=== PATIENT | male | born 1960 | race Two or more races ===

== ENCOUNTER 2020-07-07 15:29 | Outpatient (REF) | payer OTHER, SELFPAY ==
--- NOTE | 2020-07-07 15:35 | XR_ITS ---
EXAMINATION: XR ANKLE, LEFT CLINICAL INFORMATION: Pain of left ankle and joints of foot COMPARISON: None TECHNIQUE: AP, lateral, and mortise views of the left ankle. FINDINGS: Alignment is normal and joint spaces are maintained. No arthritic deformity, fracture, subluxation or ankle joint effusion. No focal soft tissue swelling. There is a prominent plantar calcaneal enthesophyte. Peripheral vascular calcifications are noted. XR/XR ankle LT min 3V IMPRESSION: * No specific source of left ankle pain is identified. No ankle arthritis or fracture. * There is a plantar calcaneal enthesophyte.
--- NOTE | 2020-07-07 15:35 | XR_ITS ---
EXAMINATION: XR HIP, RIGHT CLINICAL INFORMATION: Pain right hip. COMPARISON: None TECHNIQUE: Two views of the right hip. FINDINGS: There is no visible acute fracture, dislocation or bony erosive changes. The joint space is maintained. There are punctate lucencies seen in the right femoral neck and proximal femur, suspicious. The soft tissues are normal. XR/XR hip RT w PEL1V IMPRESSION: No acute fracture or dislocation seen. Small lucencies seen in right femoral neck and proximal femur. Question myeloma. Correlate with clinical exam and follow-up with whole body bone scan.
== END 2020-07-07 15:30 | disposition home or self-care (01) ==
LOC: HO.HMGCX 15:29
PROVIDERS: PCP Nurse Practitioner Family; Visit Provider Hospitalist
DX: M25.572 Pain in left ankle and joints of left foot (principal); M25.551 Pain in right hip
CPT/HCPCS: 73502; 73610

== ENCOUNTER 2020-07-19 15:11 | Outpatient (REF) | payer OTHER, SELFPAY ==
--- NOTE | 2020-07-19 15:15 | US_ITS ---
EXAMINATION: US PELVIS, LIMITED/FOLLOW UP CLINICAL INFORMATION: Visible lump right lower quadrant, best when standing. COMPARISON: None TECHNIQUE: Limited imaging through the right lower quadrant abdominal wall was performed. FINDINGS: There is a right lower quadrant soft tissue mass with peristalsis consistent with hernia where the patient clinically feels a lump. The hernia measures 2.5 x 2.3 cm. US/US pelvic limited IMPRESSION: Right lower quadrant abdominal wall hernia with peristaltic bowel loops within. It is compressible.
== END 2020-07-19 15:12 | disposition home or self-care (01) ==
LOC: HO.HMGCX 15:11
PROVIDERS: PCP Nurse Practitioner Family; Visit Provider Nurse Practitioner Family
DX: R10.2 Pelvic and perineal pain (principal); R10.30 Lower abdominal pain, unspecified
CPT/HCPCS: 76857

== ENCOUNTER → 2020-08-10 15:15 | Outpatient (BNVA) | payer OTHER, SELFPAY | PROVIDERS: PCP Nurse Practitioner Family; Visit Provider Surgery | DX: Z76.89 Persons encountering health services in other specified circumstances (principal) ==

== ENCOUNTER 2020-08-29 07:59 | Day surgery (SDC) | payer OTHER, SELFPAY ==
[2020-08-23 14:28] VITALS: BMI 26.2
--- NOTE | 2020-08-28 10:46 | P.CONAN_ITS ---
Documented by User: Ruth Olivera 08/28/20 10:46 HPI - Anesthesia Eval Consult details Narrative: 59yo M for Hernia Repair Inguinal with Mesh [facility] Past Medical History Medical History Asthma Hx of cardiac murmur Right inguinal hernia Seasonal allergies Surgical History Surgical History H/O colonoscopy History of dental surgery Social History Social History Alcohol intake: current Alcohol intake frequency: holidays/special occasions only Smoking Status: Never smoker Use of substances other than those prescribed or required for medical reasons: No Advance Directives Information Provided: No Recently lost weight without trying: No Meds Allergies Allergy/AdvReac Type Severity Reaction Status Date / Time seasonal Allergy Intermediate Shortness Uncoded 08/23/20 14:32 of Breath Home Medications Medication Instructions Recorded Confirmed Type albuterol sulfate 90 mcg/actuation 2 puff PO Q6H PRN 07/07/20 08/23/20 History aerosol inhaler fluticasone 100 mcg-salmeterol 50 1 inh INHALATION Q6H PRN 07/07/20 08/23/20 History mcg/dose blistr powdr for inhalation metronidazole 1 % topical gel with TOPICAL DAILY 07/07/20 07/07/20 History pump sildenafil 25 mg tablet 0 mg PO 07/07/20 08/10/20 History Exam Exam Date and Time: August 28, 2020 1046 Height,Weight and Vital Signs: Height 6 ft 4 in Weight 97.522 kg Assessment and Plan Assessment Anesthesia Assessment: Chart Reviewed Documented by User: Yuli Acosta 08/29/20 08:25 [facility] Past Medical History Medical History Asthma Hx of cardiac murmur Right inguinal hernia Seasonal allergies Surgical History Surgical History H/O colonoscopy History of dental surgery Social History Social History Alcohol intake: current Alcohol intake frequency: holidays/special occasions only Smoking Status: Never smoker Use of substances other than those prescribed or required for medical reasons: No Advance Directives Information Provided: No Recently lost weight without trying: No Meds Allergies Allergy/AdvReac Type Severity Reaction Status Date / Time seasonal Allergy Intermediate Shortness Uncoded 08/23/20 14:32 of Breath Home Medications Medication Instructions Recorded Confirmed Type albuterol sulfate 90 mcg/actuation 2 puff PO Q6H PRN 07/07/20 08/23/20 History aerosol inhaler fluticasone 100 mcg-salmeterol 50 1 inh INHALATION Q6H PRN 07/07/20 08/23/20 History mcg/dose blistr powdr for inhalation metronidazole 1 % topical gel with TOPICAL DAILY 07/07/20 07/07/20 History pump sildenafil 25 mg tablet 0 mg PO 07/07/20 08/10/20 History Exam Airway Mallampati Class: II TM Dist: >3cm Neck ROM: Full Assessment and Plan Assessment Anesthesia Assessment: Anesthesia Plan Discussed and Chart Reviewed Final Anesthetic Review NPO: Yes ASA Class: II Final Preanesthetic Review: No Changes in Pt Med Stat, Meds/Allgs Chart Reviewed, Consent Obtained/Reviewed and Anes Risks/Benef Reviewed Patient Risk: Low Procedure Risk: Low Assessment/Block/Sedation in SS: Assess/Block/Sedation-SS Anesthetic Plan Anesthetic Plan: GA Disposition: Standard PACU
[2020-08-29] VITALS (7 sets, daily range): BP systolic 118–159; BP diastolic 76–88; PULSE 69–75; RESP 16–17; TEMP 36.2–36.4; O2SAT 98–99
[2020-08-29] MEDS: Lactated Ringers 1,000 ML 100 ML IVCONT (08:25)
--- NOTE | 2020-08-29 08:31 | MHC.SHP ---
Pre-Procedural Eval Section B Chief Complaint: Right Inguinal Hernia Allergies: Allergies Allergy/AdvReac Type Severity Reaction Status Date / Time seasonal Allergy Intermediate Shortness Uncoded 08/23/20 14:32 of Breath Plan I have reviewed the history and physical and performed a pertinent physical examination on my patient. No changes have occurred unless specified.
--- NOTE | 2020-08-29 09:22 | W.PM.OPN ---
Operative Note Operative Note Date of Service: 08/29/20 Narrative: PROCEDURE: REPAIR OF A RIGHT INGUINAL HERNIA WITH MESH PREOP DIAGNOSIS: RIGHT INGUINAL HERNIA POSTOP DIAGNOSIS: RIGHT INGUINAL HERNIA, INDIRECT Surgeon: Luis Underwood MD 1st metal moulder's assistant: MICHELLE Schreiber The patient is a 59-year-old male with the with right inguinal hernia. In view of discomfort, he wanted to proceed with repair. He understood the technique of repair with mesh. He was aware of the risks, benefits, and alternatives. The patient was brought to the operating room and placed supine on the OR table under general anesthesia via laryngeal mask airway. The right groin was prepped and draped in the usual sterile fashion. A surgical time-out was done. The patient received cefazolin 2 g IV preoperatively. I infiltrated the planned line of incision using lidocaine 1%. I made a short incision along an imaginary line from the anterior superior iliac spine to the pubic ramus using blade 15. This was extended through the full-thickness of the skin and subcutaneous fat to expose the external oblique aponeurosis. I bluntly dissected the external oblique aponeurosis to define the external ring. I made an incision on the fibers of external oblique aponeurosis using blade 15 and this was extended inferomedially to connect with the external ring. The inguinal canal was therefore entered. I applied graspers on both edges of the external oblique with hemostats. I bluntly dissected the underside to create a pocket for the mesh. I then bluntly dissected the spermatic cord and its contents to define the vas deferens and its accompanying vessels. By doing so I was able to identify the sac. The sac was gently dissected off of the rest of the cord contents down to the internal ring. This was therefore an indirect hernia. I twisted the sac and applied a clamp across this. I transected the sac using scissors above the clamp. I applied a suture ligature using Dexon 2 0 at the stump. I reinforced the internal ring with a small-sized plug. This plug was secured with Prolene 2-0 sutures to the shelving edge of the inguinal ligament laterally, and the internal oblique superiorly and medially. This was done using the inner leaves of the plug. I reinforced the floor of the canal with a keyhole mesh. The tails of the mesh were passed around the cord at the level of the internal ring and were secured together with Prolene 2-0 sutures. I flattened the mesh on the floor of the canal. I secured the mesh with Prolene 2 sutures sutures to the shelving edge of the inguinal ligament laterally and the internal oblique superiorly and medially as well as the pubic ramus inferomedially. We irrigated and suctioned out irrigant fluid. We examined for many stasis. Once hemostasis was verified, I reapposed the external oblique aponeurosis with a running Dexon 2 0 stitch to re-create the external ring. The subcutaneous layer was reapposed with Dexon 3 0 interrupted sutures. Skin closure was achieved with Dexon 4- 0 subcuticular running stitch. Steri-Strips and dressings were applied. The incision was infiltrated with Marcaine 0.5% for postop analgesia. The patient tolerated the procedure well. Initial and final counts of sponges and instruments were correct. Estimated blood loss was about 5 cc. The patient was extubated without difficulty in the operating room and transferred to the recovery room with stable vital signs.
[2020-08-29] MEDS: oxyCODONE HCl Immed Release 5 MG TABLET PO (09:55)
[2020-08-29] MEDS: Acetaminophen 325 MG TABLET 650 MG PO (09:55)
--- NOTE | 2020-08-29 10:22 | HO.POSTANES ---
Post Anesthesia Evaluation Post Anesthesia Evaluation Vital Signs: Vital Signs Temp Pulse Resp BP Pulse Ox 08/29/20 10:15 97.5 F 69 17 130/79 98 08/29/20 10:00 74 17 131/76 99 08/29/20 09:45 71 17 143/85 H 98 08/29/20 09:40 75 17 118/88 99 08/29/20 09:35 73 17 129/79 99 08/29/20 09:30 97.5 F 70 16 122/77 98 08/29/20 08:10 97.1 F 75 16 159/82 H 99 Anesthesia: General Mental Status: Awake Pain Control: Satisfactory Nausea/Vomiting: None Hydration: Adequate Anesthesia-Related Issues: No Anes. Related Issues
== END 2020-08-29 10:50 | disposition home or self-care (01) ==
PROVIDERS: PCP Nurse Practitioner Family; Visit Provider Surgery
PROC: (CPT 49505; principal; 2020-08-29 10:20)
DX: K40.90 Unilateral inguinal hernia, without obstruction or gangrene, not specified as recurrent (principal); Z79.51 Long term (current) use of inhaled steroids; J45.909 Unspecified asthma, uncomplicated; Z79.1 Long term (current) use of non-steroidal anti-inflammatories (NSAID)
CPT/HCPCS: 49505; 88302; C1781; J0690; J1100; J1885; J2250; J2405; J3010

== ENCOUNTER → 2020-09-21 13:36 | Outpatient (BNVA) | payer OTHER, SELFPAY | PROVIDERS: PCP Nurse Practitioner Family; Visit Provider Surgery ==

== ENCOUNTER 2021-01-03 14:00 | Outpatient (REF) | payer OTHER, SELFPAY ==
[2021-01-03 16:52] LABS: MANUAL DIFF FLAG NO
[2021-01-03 17:07] LABS: Basophils Percent Auto 0.4 % (0-2); Eosinophils Absolute Auto 0.1 X10*3/uL (0.0-0.4); Eosinophils Percent Auto 1.2 % (0-4); Hematocrit 37.3 % (42-52); Hemoglobin 12.4 g/dl (14.0-18.0); Imm Gran Abs Auto 0.01 X10*3/uL (0.00-0.03); Imm Gran Pct Auto 0.2 % (0.0-0.4); Lymphocytes Absolute Auto 1.5 X10*3/uL (1.2-4.9); Lymphocytes Percent Auto 28.2 % (20-40); Mean Corpuscular HGB Conc 33.2 g/dl (31.0-36.0); Mean Corpuscular Volume 90.1 fL (80-98); Monocytes Absolute Auto 0.5 X10*3/uL (0.1-1.2); Monocytes Percent Auto 9.9 % (2-11); Neutrophils Absolute Auto 3.1 X10*3/uL (2.0-8.3); Neutrophils Percent Auto 60.1 % (45-73); Platelet Count 249 X10*3/uL (160-400); Red Blood Count 4.14 X10*6/uL (4.60-5.80); Red Cell Distribution Width 12.8 % (11.0-16.0); White Blood Count 5.2 X10*3/uL (4.8-10.8)
[2021-01-03 17:33] LABS: Alanine Aminotransferase 16 U/L (0-40); Albumin Level 4.2 g/dL (3.5-5.0); Alkaline Phosphatase 106 U/L (39-117); Anion Gap 11 (12-20); Aspartate Amino Transferase 23 U/L (5-37); Bilirubin Total 0.6 mg/dL (0.0-1.0); Blood Urea Nitrogen 13 mg/dL (9-16); Calcium 9.4 mg/dL (8.4-10.2); Carbon Dioxide 28 mmol/L (22-29); Chloride 102 mmol/L (96-108); Cholesterol 180 mg/dL; Estimated Glomerular Filt Rate > 60; Glucose Fasting 81 mg/dL (60-99); HDL Cholesterol 79 mg/dL; LDL Cholesterol Calculated 94 mg/dl; Potassium 4.2 mmol/L (3.3-5.1); Sodium 137 mmol/L (135-145); Total Protein 6.6 g/dL (6.5-8.0); Triglycerides 35 mg/dL
[2021-01-03 17:39] LABS: Prostate Specific Antigen Scr 0.87 ng/mL (<0.05-4.0); TSH reflex Free T4 0.65 uIU/mL (0.32-4.0)
== END 2021-01-03 14:01 | disposition home or self-care (01) ==
LOC: HO.HMGCLDS 14:00
PROVIDERS: PCP Nurse Practitioner Family; Visit Provider Nurse Practitioner Family
DX: Z00.00 Encounter for general adult medical examination without abnormal findings (principal); Z12.5 Encounter for screening for malignant neoplasm of prostate
CPT/HCPCS: 36415; 80053; 80061; 84153; 84443; 85025

== ENCOUNTER 2021-01-25 11:15 | Outpatient (REF) | payer OTHER, SELFPAY ==
[2021-01-27 11:49] LABS: FIT Int Ctl YES; FIT1 NEGATIVE (NEGATIVE); FIT2 NEGATIVE (NEGATIVE)
== END 2021-01-25 11:16 | disposition home or self-care (01) ==
LOC: HO.LNP 11:15
PROVIDERS: Visit Provider Nurse Practitioner Family
DX: Z12.11 Encounter for screening for malignant neoplasm of colon (principal)
CPT/HCPCS: 82274

== ENCOUNTER → 2021-03-08 07:25 | Outpatient (REF) | payer OTHER, SELFPAY ==
--- NOTE | 2021-03-08 07:30 | CA_ITS ---
Transthoracic Echocardiogram Patient (Last, First, Middle): Aamir Cummings P Gender: Male Date of : 1960 Age: 60 Procedure Date: 03/08/2021 Procedure Type: Transthoracic Echocardiogram Location: OP Height: 193.04 cm Weight: 95.26 kg BSA: 2.26 m2 Heart Rate: bpm BP: 130 / 90 mmHg Gearcase Assembler: RAUL Robbins MD: Aamir Negron [facility] Logistics Assistant: Gregg Stevenson MD Symptoms: R01.1 - Cardiac murmur, unspecified Study Quality: Good ECG Rhythm: Sinus Conclusions: - Essentially normal study Findings Left Ventricle Normal left ventricular size, thickness, and systolic function. The visually estimated ejection fraction is between 55-60%. Spectral Doppler is indicative of a normal filling pattern. Right Ventricle Normal right ventricular cavity size and systolic function. Atria Both atria are normal in size. Interatrial shunt cannot be excluded. Aortic Valve Normal aortic valve structure and function. There is no aortic valve stenosis. There is no aortic valve regurgitation. Mitral Valve Normal mitral valve structure and function. There is trace mitral valve regurgitation. There is no mitral valve stenosis. Pulmonic Valve The pulmonic valve is likely normal. There is trace pulmonic valve regurgitation. Tricuspid Valve Normal tricuspid valve structure. There is trace tricuspid valve regurgitation. The right ventricular systolic pressure is normal. The right ventricular systolic pressure is 32 mmHg. Normal right atrial pressure. There is no evidence of pulmonary hypertension. Great Vessels All visible segments of the aorta are normal in size. The pulmonary artery was not well visualized. Venous The inferior vena cava is normal in size and collapses greater than 50% with inspiration. Pericardium/Pleural There is no evidence of pericardial effusion. Prior Study Comparison No prior study available for comparison. Measurements 2D Linear Measurements IVSd: 0.85 0.6-0.9/0.6-1.0 cm LVIDd: 5.10 3.9-5.3/4.2-5.9 cm LVIDd Index: 2.26 2.4-3.2/2.2-3.1 cm/m2 LVIDs: 3.67 2.0-3.6 cm LVPWd: 0.92 0.7-1.1 cm Ao Root: 4.20 2.1-3.5 cm LA Diam: 3.80 2.7-3.8/3.0-4.0 cm LAIDs Index: 1.68 1.5-2.3 cm/m2 LV Mass: 198.81 67-162/88-224 g LV Mass Index: 87.97 43-95/49-115 g/m2 LVOT Diam: 2.10 3.0+(-)1.3 cm 2D Systolic Function EF 4C: 54.40 >55% EF 2C: 55.40 >55% Mitral Valve MV Pk E: 0.70 MV PK A: 0.67 MV Decel Time: 292.00 E/A: 1.00 E'Lateral: 12.90 E'Medial: 8.27 E/E' Med: 8.40 E/E' Lat: 5.40 PHT: 85.00 MVA PHT: 2.59 Decel [place]: 2.39 Aortic Valve AoV Pk Lauro: 1.29 AoV Mn Lauro: 0.91 AoV VTI: 0.30 AoV Pk Grad: 7.00 Aov Mn Grad: 4.00 KHUSHI Cont.VTI: 2.86 LVOT LVOT Pk Lauro: 1.21 LVOT Mn Lauro: 0.70 LVOT VTI: 0.25 LVOT Pk Grad: 6.00 LVOT Mn Grad: 2.00 LVOT Diam: 2.10 LVOT Area: 3.46 Diastolic Function MV Pk E: 0.70 MV Pk A: 0.67 E/A: 1.00 E'Medial: 8.27 E/E' Med: 8.40 E' Laterial: 12.90 E/E' Lat: 5.40 Right Ventricle TAPSE (mm): 2.58 Tricuspid Valve TR Pk Lauro: 2.46 TR Pk Grad: 24.00 RA Press: 8.00 RVSP: 32.00 Great Vessels Aorta Ao Root-2D: 4.20 2.0-3.7 cm Ao Asc: 3.70 2.1-3.4 cm Ao Arch: 3.50 Updated in Other Vendor System with Status of Final Gregg Stevenson MD electronically signed on 03/09/2021 12:52:43 PM with status of Final
== END ==
LOC: HO.CARD 07:25
PROVIDERS: PCP Nurse Practitioner Family; Visit Provider Nurse Practitioner Family
DX: R01.1 Cardiac murmur, unspecified (principal)
CPT/HCPCS: 93306

== ENCOUNTER 2021-04-30 15:34 | Outpatient (REF) | payer OTHER, SELFPAY ==
[2021-04-30 16:03] LABS: MANUAL DIFF FLAG NO
[2021-04-30 16:10] LABS: Basophils Percent Auto 0.7 % (0-2); Eosinophils Absolute Auto 0.1 X10*3/uL (0.0-0.4); Eosinophils Percent Auto 1.3 % (0-4); Hematocrit 38.7 % (42-52); Hemoglobin 13.2 g/dl (14.0-18.0); Imm Gran Abs Auto 0.02 X10*3/uL (0.00-0.03); Imm Gran Pct Auto 0.4 % (0.0-0.4); Immature Retic Fraction 6.8 % (2.3-13.4); Lymphocytes Absolute Auto 1.5 X10*3/uL (1.2-4.9); Lymphocytes Percent Auto 26.3 % (20-40); Mean Corpuscular HGB Conc 34.1 g/dl (31.0-36.0); Mean Corpuscular Hemoglobin 30.2 pg (27.0-33.0); Mean Corpuscular Volume 88.6 fL (80-98); Mean Platelet Volume 10.4 fL (9.4-12.4); Monocytes Absolute Auto 0.6 X10*3/uL (0.1-1.2); Monocytes Percent Auto 10.4 % (2-11); Neutrophils Absolute Auto 3.4 X10*3/uL (2.0-8.3); Neutrophils Percent Auto 60.9 % (45-73); Platelet Count 230 X10*3/uL (160-400); Red Blood Count 4.37 X10*6/uL (4.60-5.80); Red Cell Distribution Width 12.6 % (11.0-16.0); Retic HGB Equivalent 33.6 pg (30.0-35.0); Reticulocyte Percent 1.4 % (0.5-1.8); White Blood Count 5.6 X10*3/uL (4.8-10.8)
[2021-04-30 16:30] LABS: Blood Urea Nitrogen 22 mg/dL (9-16); Estimated Glomerular Filt Rate > 60
[2021-04-30 16:49] LABS: Ferritin 295 ng/mL (20-250)
[2021-04-30 17:06] LABS: Folate 8.4 ng/mL (> or = 4.0); Vitamin B12 323 pg/mL (200-900)
[2021-05-03 13:22] LABS: Methylmalonic Acid 171 nmol/L (87-318)
[2021-05-04 08:37] LABS: IgA 278 mg/dL (47-310); IgG 981 mg/dL (600-1640); IgM 94 mg/dL (50-300)
[2021-05-09 10:57] LABS: Prot Elec - Albumin 4.3 g/dL (3.8-4.8); Prot Elec - Alpha1 0.3 g/dL (0.2-0.3); Prot Elec - Alpha2 0.7 g/dL (0.5-0.9); Prot Elec - Beta 1 0.5 g/dL (0.4-0.6); Prot Elec - Beta 2 0.4 g/dL (0.2-0.5); Prot Elec - Gamma 0.9 g/dL (0.8-1.7); Prot Elec - Total Protein 6.9 g/dL (6.1-8.1)
== END 2021-04-30 15:35 | disposition home or self-care (01) ==
LOC: HO.LAB 15:34
PROVIDERS: PCP Nurse Practitioner Family; Referring Provider Nurse Practitioner Family; Visit Provider Psychiatry & Neurology Neurology
DX: G95.20 Unspecified cord compression (principal); D64.9 Anemia, unspecified
CPT/HCPCS: 36415; 82565; 82607; 82728; 82746; 82784; 83921; 84165; 84520; 85025; 85045; 86334

== ENCOUNTER 2021-05-09 17:58 | Outpatient (REF) | payer OTHER, SELFPAY ==
--- NOTE | ~2021-05-09 | MR_ITS ---
EXAMINATION: MR CERVICAL SPINE WITHOUT AND WITH CONTRAST CLINICAL INFORMATION: Cervical cord compression. Myelopathy. COMPARISON: None available. TECHNIQUE: MRI of the cervical spine was obtained using routine sequences without and following the administration of 10 mL of Gadavist intravenous contrast. FINDINGS: Normal anatomic alignment. Advanced degenerative disc disease at C5-C6. Moderate degenerative disc disease at C2-C3 and C3-C4. Associated mixed Modic type discogenic endplate changes including minimal Modic type I discogenic edema at C5-C6. No additional suspicious marrow edema. The vertebral body heights are largely maintained. Patchy regions of T2 hyperintensity within the right ventral cord at the levels of C2 and C3 and left lateral cord at the level of C4. Potential faint T2 hyperintensity within the dorsal cord at the level of C5-C6. No demonstrated abnormal contrast enhancement. Limited evaluation of the soft tissues of the neck without demonstrated abnormalities. The flow voids of the major cervical vessels are maintained. Normal appearance of the cervicomedullary junction and visualized posterior fossa. SPINAL LEVELS: C2-C3: Normal annular contour. There is mild left and no right uncovertebral joint arthropathy. There is no facet joint arthropathy. There is no neural foraminal stenosis. There is no spinal canal stenosis. C3-C4: Mild disc-osteophyte complex. There is mild bilateral uncovertebral joint arthropathy. There is mild left and no right facet joint arthropathy. There is mild bilateral neural foraminal stenosis. There is no spinal canal stenosis. C4-C5: Mild disc-osteophyte complex with superimposed small central disc protrusion. There is mild right and no left uncovertebral joint arthropathy. There is mild bilateral facet joint arthropathy. There is mild right and no left neural foraminal stenosis. There is no spinal canal stenosis. C5-C6: Mild disc-osteophyte complex. There is moderate right and mild left uncovertebral joint arthropathy. There is mild bilateral facet joint arthropathy. There is moderate right and no left neural foraminal stenosis. There is no spinal canal stenosis. C6-C7: Mild disc-osteophyte complex. There is mild right and no left uncovertebral joint arthropathy. There is mild bilateral facet joint arthropathy. There is mild right and no left neural foraminal stenosis. There is no spinal canal stenosis. C7-T1: Normal annular contour. There is no uncovertebral joint arthropathy. There is no facet joint arthropathy. There is no neural foraminal stenosis. There is no spinal canal stenosis. MR/MR cervical spine wo/w con IMPRESSION: 1. Nonspecific patchy T2 hyperintensities within the cervical spinal cord. No associated enhancement to suggest acute insults. No evidence of cord compression. These changes are nonspecific but may represent chronic sequela of inflammatory/demyelinating process. 2. 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 Most notably, there is moderate right-sided neural foraminal stenosis at C5-C6. No spinal canal stenosis.
== END 2021-05-09 17:59 | disposition home or self-care (01) ==
LOC: HO.MRI 17:58
PROVIDERS: Visit Provider Psychiatry & Neurology Neurology
DX: G95.20 Unspecified cord compression (principal)
CPT/HCPCS: 72156; A9585

== ENCOUNTER 2021-05-23 19:37 | Outpatient (REF) | payer OTHER, SELFPAY ==
--- NOTE | ~2021-05-23 | MR_ITS ---
EXAMINATION: MR BRAIN WITHOUT CONTRAST CLINICAL INFORMATION: Cord compression with myelopathy. Evaluation for demyelinating disease. COMPARISON: Cervical spine MRI from 05/09/2021. TECHNIQUE: MRI of the brain was obtained using routine sequences without contrast. FINDINGS: No focal restricted diffusion is demonstrated to suggest acute or subacute cerebral ischemia. No evidence of acute or chronic hemorrhagic products on heme-sensitive imaging. Mild nonspecific scattered subcortical, deep white matter, periventricular, and callosal T2 FLAIR hyperintensities. Proportional prominence of the ventricles and sulcal spaces without evidence of obstructive hydrocephalus. No abnormal mass effect. No midline shift. Normal appearance of the pituitary gland. Normal positioning of the cerebellar tonsils. Normal arterial and venous vascular flow voids are present. Normal, homogeneous marrow signal. Mild mucosal thickening of the paranasal sinuses. No signal abnormalities within the mastoids. MR/MR head/brain wo con IMPRESSION: 1. No acute intracranial abnormalities. 2. Mild supratentorial white matter changes. The distribution of these changes is nonspecific but can be seen in the setting of demyelinating processes in the appropriate clinical setting.
== END 2021-05-23 19:38 | disposition home or self-care (01) ==
LOC: HO.MRI 19:37
PROVIDERS: Visit Provider Psychiatry & Neurology Neurology
DX: G95.20 Unspecified cord compression (principal); G37.9 Demyelinating disease of central nervous system, unspecified
CPT/HCPCS: 70551

== ENCOUNTER 2021-07-23 09:44 | Outpatient (REF) | payer OTHER, SELFPAY | END 2021-07-23 09:45 | disposition home or self-care (01) | LOC: HO.MDS 09:44 | PROVIDERS: PCP Nurse Practitioner Family; Visit Provider Psychiatry & Neurology Neurology | DX: G37.9 Demyelinating disease of central nervous system, unspecified (principal) | CPT/HCPCS: 96365; J2930 ==

== ENCOUNTER 2021-07-24 10:42 | Outpatient (REF) | payer OTHER, SELFPAY | END 2021-07-24 10:43 | disposition home or self-care (01) | LOC: HO.MDS 10:42 | PROVIDERS: PCP Nurse Practitioner Family; Visit Provider Psychiatry & Neurology Neurology | DX: G37.9 Demyelinating disease of central nervous system, unspecified (principal) | CPT/HCPCS: 96365; J2930 ==

== ENCOUNTER 2021-07-25 12:00 | Outpatient (REF) | payer OTHER, SELFPAY | END 2021-07-25 12:01 | disposition home or self-care (01) | LOC: HO.MDS 12:00 | PROVIDERS: PCP Nurse Practitioner Family; Visit Provider Psychiatry & Neurology Neurology | DX: G37.9 Demyelinating disease of central nervous system, unspecified (principal) | CPT/HCPCS: 96365; J2930 ==

== ENCOUNTER 2021-07-26 09:53 | Outpatient (REF) | payer OTHER, SELFPAY | END 2021-07-26 09:54 | disposition home or self-care (01) | LOC: HO.MDS 09:53 | PROVIDERS: PCP Nurse Practitioner Family; Visit Provider Psychiatry & Neurology Neurology | DX: G37.9 Demyelinating disease of central nervous system, unspecified (principal) | CPT/HCPCS: 96365; J2930 ==

== ENCOUNTER 2021-07-27 09:26 | Outpatient (REF) | payer OTHER, SELFPAY | END 2021-07-27 09:31 | LOC: HO.MDS 09:26 | PROVIDERS: PCP Nurse Practitioner Family; Visit Provider Psychiatry & Neurology Neurology | DX: G35 Multiple sclerosis (principal) | CPT/HCPCS: 96365 ==

== ENCOUNTER 2021-09-25 13:51 | Outpatient (REF) | payer OTHER, SELFPAY | END 2021-09-25 13:52 | disposition home or self-care (01) | LOC: HO.MDS 13:51 | PROVIDERS: Visit Provider Psychiatry & Neurology Neurology | DX: G35 Multiple sclerosis (principal) | CPT/HCPCS: 96365; J2930 ==

== ENCOUNTER 2021-09-26 09:57 | Outpatient (REF) | payer OTHER, SELFPAY | END 2021-09-26 09:58 | disposition home or self-care (01) | LOC: HO.MDS 09:57 | PROVIDERS: Visit Provider Psychiatry & Neurology Neurology | DX: G35 Multiple sclerosis (principal) | CPT/HCPCS: 96365; J2930 ==

== ENCOUNTER 2021-09-27 13:51 | Outpatient (REF) | payer OTHER, SELFPAY | END 2021-09-27 13:52 | disposition home or self-care (01) | LOC: HO.MDS 13:51 | PROVIDERS: Visit Provider Psychiatry & Neurology Neurology | DX: G35 Multiple sclerosis (principal) | CPT/HCPCS: 96365; J2930 ==

== ENCOUNTER 2021-10-24 11:23 | Outpatient (REF) | payer OTHER, SELFPAY ==
[2021-10-24 11:47] LABS: MANUAL DIFF FLAG NO
[2021-10-24 12:12] LABS: Basophils Percent Auto 0.4 % (0-2); Eosinophils Percent Auto 0.5 % (0-4); Hematocrit 41.8 % (42.0-52.0); Hemoglobin 13.6 g/dl (14.0-18.0); Imm Gran Abs Auto 0.03 X10*3/uL (0.00-0.03); Imm Gran Pct Auto 0.5 % (0.0-0.4); Lymphocytes Absolute Auto 1.3 X10*3/uL (1.2-4.9); Lymphocytes Percent Auto 22.8 % (20-40); Mean Corpuscular HGB Conc 32.5 g/dl (31.0-36.0); Mean Corpuscular Hemoglobin 30.2 pg (27.0-33.0); Mean Corpuscular Volume 92.7 fL (80.0-98.0); Mean Platelet Volume 10.7 fL (9.4-12.4); Monocytes Absolute Auto 0.6 X10*3/uL (0.1-1.2); Monocytes Percent Auto 11.1 % (2-11); Neutrophils Absolute Auto 3.7 x10*3/uL (2.0-8.3); Neutrophils Percent Auto 64.7 % (45-73); Platelet Count 261 X10*3/uL (160-400); Red Blood Count 4.51 X10*6/uL (4.60-5.80); Red Cell Distribution Width 12.7 % (11.0-16.0); White Blood Count 5.7 X10*3/uL (4.8-10.8)
[2021-10-24 12:49] LABS: Erythrocyte Sedimentation Rate 9 MM/HR (0-15)
[2021-10-25 09:02] LABS: Lyme Abs Screen <0.90 index
[2021-10-26 13:46] LABS: Anti Nuclear Antibody Screen NEGATIVE (NEGATIVE)
== END 2021-10-24 11:24 | disposition home or self-care (01) ==
LOC: HO.LAB 11:23
PROVIDERS: PCP Nurse Practitioner Family; Visit Provider Psychiatry & Neurology Neurology
DX: G35 Multiple sclerosis (principal)
CPT/HCPCS: 36415; 85025; 85652; 86038; 86039; 86617; 86618

== ENCOUNTER 2021-10-24 12:01 | Outpatient (REF) | payer OTHER, SELFPAY | END 2021-10-24 12:02 | disposition home or self-care (01) | LOC: HO.MDS 12:01 | PROVIDERS: Visit Provider Psychiatry & Neurology Neurology | DX: G35 Multiple sclerosis (principal) | CPT/HCPCS: 96365; J2930 ==

== ENCOUNTER 2021-11-21 13:07 | Outpatient (REF) | payer OTHER, SELFPAY | END 2021-11-21 13:08 | disposition home or self-care (01) | LOC: HO.MDS 13:07 | PROVIDERS: Visit Provider Psychiatry & Neurology Neurology | DX: G35 Multiple sclerosis (principal) | CPT/HCPCS: 96365; J2930 ==

== ENCOUNTER 2021-12-12 13:25 | Outpatient (REF) | payer OTHER, SELFPAY | END 2021-12-12 13:26 | disposition home or self-care (01) | LOC: HO.MDS 13:25 | PROVIDERS: Visit Provider Psychiatry & Neurology Neurology | DX: G35 Multiple sclerosis (principal) | CPT/HCPCS: 96365; J2930 ==

== ENCOUNTER 2022-01-02 13:27 | Outpatient (REF) | payer OTHER, SELFPAY | END 2022-01-02 13:28 | disposition home or self-care (01) | LOC: HO.MDS 13:27 | PROVIDERS: Visit Provider Psychiatry & Neurology Neurology | DX: G35 Multiple sclerosis (principal) | CPT/HCPCS: 96365; J2930 ==

== ENCOUNTER 2022-01-23 13:38 | Outpatient (REF) | payer OTHER, SELFPAY | END 2022-01-23 13:39 | disposition home or self-care (01) | LOC: HO.MDS 13:38 | PROVIDERS: Visit Provider Psychiatry & Neurology Neurology | DX: G35 Multiple sclerosis (principal) | CPT/HCPCS: 96365; J2930 ==

== ENCOUNTER 2022-02-14 13:34 | Outpatient (REF) | payer OTHER, SELFPAY | END 2022-02-14 13:35 | disposition home or self-care (01) | LOC: HO.MDS 13:34 | PROVIDERS: Visit Provider Psychiatry & Neurology Neurology | DX: G35 Multiple sclerosis (principal) | CPT/HCPCS: 96365; J2930 ==

== ENCOUNTER 2022-03-06 13:29 | Outpatient (REF) | payer OTHER, SELFPAY | END 2022-03-06 13:30 | disposition home or self-care (01) | LOC: HO.MDS 13:29 | PROVIDERS: Visit Provider Psychiatry & Neurology Neurology | DX: G35 Multiple sclerosis (principal) | CPT/HCPCS: 96365; J2930 ==

== ENCOUNTER 2022-03-27 13:32 | Outpatient (REF) | payer OTHER, SELFPAY | END 2022-03-27 13:33 | disposition home or self-care (01) | LOC: HO.MDS 13:32 | PROVIDERS: Visit Provider Psychiatry & Neurology Neurology | DX: G35 Multiple sclerosis (principal) | CPT/HCPCS: 96365; J2930 ==

== ENCOUNTER 2022-04-11 13:29 | Outpatient (REF) | payer OTHER, SELFPAY | END 2022-04-11 13:30 | disposition home or self-care (01) | LOC: HO.MDS 13:29 | PROVIDERS: Visit Provider Psychiatry & Neurology Neurology | DX: G35 Multiple sclerosis (principal) | CPT/HCPCS: 96365; J2930 ==

== ENCOUNTER 2022-05-01 13:29 | Outpatient (REF) | payer OTHER, SELFPAY | END 2022-05-01 13:30 | disposition home or self-care (01) | LOC: HO.MDS 13:29 | PROVIDERS: Visit Provider Psychiatry & Neurology Neurology | DX: G35 Multiple sclerosis (principal) | CPT/HCPCS: 96365; J2930 ==

== ENCOUNTER 2022-05-29 13:23 | Outpatient (REF) | payer OTHER, SELFPAY | END 2022-05-29 13:24 | disposition home or self-care (01) | LOC: HO.MDS 13:23 | PROVIDERS: Visit Provider Psychiatry & Neurology Neurology | DX: G35 Multiple sclerosis (principal) | CPT/HCPCS: 96365; J2930 ==

== ENCOUNTER 2022-06-17 13:18 | Outpatient (REF) | payer OTHER, SELFPAY | END 2022-06-17 13:19 | disposition home or self-care (01) | LOC: HO.MDS 13:18 | PROVIDERS: Visit Provider Psychiatry & Neurology Neurology | DX: G35 Multiple sclerosis (principal) | CPT/HCPCS: 96365; J2930 ==

== ENCOUNTER 2022-07-10 13:22 | Outpatient (REF) | payer OTHER, SELFPAY | END 2022-07-10 13:23 | disposition home or self-care (01) | LOC: HO.MDS 13:22 | PROVIDERS: Visit Provider Psychiatry & Neurology Neurology | DX: G35 Multiple sclerosis (principal) | CPT/HCPCS: 96365; J2930 ==

== ENCOUNTER 2022-07-31 13:52 | Outpatient (REF) | payer OTHER, SELFPAY | END 2022-07-31 13:53 | disposition home or self-care (01) | LOC: HO.MDS 13:52 | PROVIDERS: Visit Provider Psychiatry & Neurology Neurology | DX: G35 Multiple sclerosis (principal) | CPT/HCPCS: 96365; J2930 ==

== ENCOUNTER 2022-08-21 13:55 | Outpatient (REF) | payer OTHER, SELFPAY | END 2022-08-21 13:56 | disposition home or self-care (01) | LOC: HO.MDS 13:55 | PROVIDERS: Visit Provider Psychiatry & Neurology Neurology | DX: G35 Multiple sclerosis (principal) | CPT/HCPCS: 96365; J2930 ==

== ENCOUNTER 2022-09-11 13:56 | Outpatient (REF) | payer OTHER, SELFPAY | END 2022-09-11 13:57 | disposition home or self-care (01) | LOC: HO.MDS 13:56 | PROVIDERS: Visit Provider Psychiatry & Neurology Neurology | DX: G35 Multiple sclerosis (principal) | CPT/HCPCS: 96365; J2930 ==

== ENCOUNTER 2022-10-02 13:58 | Outpatient (REF) | payer OTHER, SELFPAY | END 2022-10-02 13:59 | disposition home or self-care (01) | LOC: HO.MDS 13:58 | PROVIDERS: Visit Provider Psychiatry & Neurology Neurology | DX: G35 Multiple sclerosis (principal) | CPT/HCPCS: 96365; J2930 ==

== ENCOUNTER 2022-10-23 13:54 | Outpatient (REF) | payer OTHER, SELFPAY | END 2022-10-23 13:55 | disposition home or self-care (01) | LOC: HO.MDS 13:54 | PROVIDERS: Visit Provider Psychiatry & Neurology Neurology | DX: G35 Multiple sclerosis (principal) | CPT/HCPCS: 96365; J2930 ==

== ENCOUNTER 2022-11-13 14:00 | Outpatient (REF) | payer OTHER, SELFPAY | END 2022-11-13 14:01 | disposition home or self-care (01) | LOC: HO.MDS 14:00 | PROVIDERS: Visit Provider Psychiatry & Neurology Neurology | DX: G35 Multiple sclerosis (principal) | CPT/HCPCS: 96365; J2930 ==

== ENCOUNTER 2022-11-18 12:48 | Outpatient (REF) | payer OTHER, SELFPAY ==
[2022-11-18 13:59] LABS: Appearance Urine Clear; Color Urine Yellow; Glucose Urine UA Negative (Negative); Leukocyte Esterase Urine Negative (Negative); Nitrite Urine Negative (Negative); Specific Gravity - Urine 1.015 (1.005-1.025); Urine Blood Negative (Negative); Urine Ketones Negative (Negative); Urine Protein Negative (Neg-Trace)
[2022-11-18 14:58] LABS: Alanine Aminotransferase 20 U/L (0-40); Albumin Level 4.4 g/dL (3.5-5.0); Alkaline Phosphatase 109 U/L (39-117); Anion Gap 11 (12-20); Aspartate Amino Transferase 18 U/L (5-37); Bilirubin Total 0.6 mg/dL (0.0-1.0); Blood Urea Nitrogen 16 mg/dL (9-16); Calcium 9.6 mg/dL (8.4-10.2); Carbon Dioxide 31 mmol/L (22-29); Chloride 103 mmol/L (96-108); Cholesterol 199 mg/dL; Estimated Glomerular Filt Rate > 60; Glucose Fasting 93 mg/dL (60-99); HDL Cholesterol 76 mg/dL; LDL Cholesterol Calculated 115 mg/dl; Potassium 4.4 mmol/L (3.3-5.1); Sodium 141 mmol/L (135-145); Total Protein 6.6 g/dL (6.5-8.0); Triglycerides 41 mg/dL
[2022-11-18 15:00] LABS: Prostate Specific Antigen Scr 1.26 ng/mL (<0.05-4.0); TSH reflex Free T4 1.08 uIU/mL (0.32-4.0)
== END 2022-11-18 12:49 | disposition home or self-care (01) ==
LOC: HO.HMGCLDS 12:48
PROVIDERS: PCP Nurse Practitioner Family; Visit Provider Nurse Practitioner Family
DX: Z00.00 Encounter for general adult medical examination without abnormal findings (principal); Z12.5 Encounter for screening for malignant neoplasm of prostate; D64.9 Anemia, unspecified; G35 Multiple sclerosis
CPT/HCPCS: 36415; 80053; 80061; 81003; 84153; 84443

== ENCOUNTER 2022-12-04 14:13 | Outpatient (REF) | payer OTHER, SELFPAY | END 2022-12-04 14:14 | disposition home or self-care (01) | LOC: HO.MDS 14:13 | PROVIDERS: Visit Provider Psychiatry & Neurology Neurology | DX: G35 Multiple sclerosis (principal) | CPT/HCPCS: 96365; J2930 ==

== ENCOUNTER 2022-12-25 14:09 | Outpatient (REF) | payer OTHER, SELFPAY | END 2022-12-25 14:10 | disposition home or self-care (01) | LOC: HO.MDS 14:09 | PROVIDERS: Visit Provider Psychiatry & Neurology Neurology | DX: G35 Multiple sclerosis (principal) | CPT/HCPCS: 96365; J2930 ==

== ENCOUNTER 2023-01-15 14:05 | Outpatient (REF) | payer OTHER, SELFPAY | END 2023-01-15 14:06 | disposition home or self-care (01) | LOC: HO.MDS 14:05 | PROVIDERS: Visit Provider Psychiatry & Neurology Neurology | DX: G35 Multiple sclerosis (principal) | CPT/HCPCS: 96365; J2930 ==

== ENCOUNTER 2023-01-22 06:36 | Outpatient (REF) | payer OTHER, SELFPAY ==
[2023-01-22 11:35] LABS: Appearance Urine Clear; Color Urine Yellow; Glucose Urine UA Negative (Negative); Leukocyte Esterase Urine Negative (Negative); Nitrite Urine Negative (Negative); Urine Blood Negative (Negative); Urine Ketones Negative (Negative); Urine Protein Negative (Neg-Trace)
[2023-01-22 11:57] LABS: Prostate Specific Antigen Scr 0.95 ng/mL (<0.05-4.0)
[2023-01-24 22:34] LABS: Transglutaminase Ab IgG <1.0 U/mL; Transglutaminase IgA <1.0 U/mL
[2023-01-29 14:18] LABS: Endomysial IgA Antibody Negative (Negative)
== END 2023-01-22 06:37 | disposition home or self-care (01) ==
LOC: HO.HMGCLDS 06:36
PROVIDERS: PCP Nurse Practitioner Family; Visit Provider Nurse Practitioner Family
DX: Z00.00 Encounter for general adult medical examination without abnormal findings (principal); R19.7 Diarrhea, unspecified; Z12.5 Encounter for screening for malignant neoplasm of prostate
CPT/HCPCS: 36415; 81003; 84153; 86231; 86364

== ENCOUNTER 2023-02-05 13:49 | Outpatient (REF) | payer OTHER, SELFPAY | END 2023-02-05 13:50 | disposition home or self-care (01) | LOC: HO.MDS 13:49 | PROVIDERS: Visit Provider Psychiatry & Neurology Neurology | DX: G35 Multiple sclerosis (principal) | CPT/HCPCS: 96365; J2930 ==

== ENCOUNTER 2023-02-26 13:53 | Outpatient (REF) | payer OTHER, SELFPAY | END 2023-02-26 13:54 | disposition home or self-care (01) | LOC: HO.MDS 13:53 | PROVIDERS: Visit Provider Psychiatry & Neurology Neurology | DX: G35 Multiple sclerosis (principal) | CPT/HCPCS: 96365; J2930 ==

== ENCOUNTER 2023-03-19 13:43 | Outpatient (REF) | payer OTHER, SELFPAY | END 2023-03-19 13:44 | disposition home or self-care (01) | LOC: HO.MDS 13:43 | PROVIDERS: Visit Provider Psychiatry & Neurology Neurology | DX: G35 Multiple sclerosis (principal) | CPT/HCPCS: 96365; J2930 ==

== ENCOUNTER 2023-04-09 13:42 | Outpatient (REF) | payer OTHER, SELFPAY | END 2023-04-09 13:43 | disposition home or self-care (01) | LOC: HO.MDS 13:42 | PROVIDERS: Visit Provider Psychiatry & Neurology Neurology | DX: G35 Multiple sclerosis (principal) | CPT/HCPCS: 96365; J2930 ==

== ENCOUNTER 2023-04-30 13:54 | Outpatient (REF) | payer OTHER, SELFPAY | END 2023-04-30 13:55 | disposition home or self-care (01) | LOC: HO.MDS 13:54 | PROVIDERS: Visit Provider Psychiatry & Neurology Neurology | DX: G35 Multiple sclerosis (principal) | CPT/HCPCS: 96365; J2930 ==

== ENCOUNTER 2023-05-21 13:48 | Outpatient (REF) | payer OTHER, SELFPAY | END 2023-05-21 13:49 | disposition home or self-care (01) | LOC: HO.MDS 13:48 | PROVIDERS: Visit Provider Psychiatry & Neurology Neurology | DX: G35 Multiple sclerosis (principal) | CPT/HCPCS: 96365; J2930 ==

== ENCOUNTER 2023-05-28 11:15 | Outpatient (REF) | payer OTHER, SELFPAY ==
[2023-05-28 16:55] LABS: CDiff Gene PCR NEGATIVE (Negative)
[2023-05-29 09:35] LABS: Adenovirus F 40/41 Not Detected (Not Detect.); Astrovirus Not Detected (Not Detect.); Campylobacter Not Detected (Not Detect.); Cryptosporidium Not Detected (Not Detect.); Cyclospora cayetanensis Not Detected (Not Detect.); E. coli EAEC Not Detected (Not Detect.); E. coli EPEC Not Detected (Not Detect.); E. coli ETEC Not Detected (Not Detect.); E. coli STEC Not Detected (Not Detect.); Entamoeba histolytica Not Detected (Not Detect.); Giardia lamblia Not Detected (Not Detect.); Norovirus GI/GII Not Detected (Not Detect.); Plesiomonas shigelloides Not Detected (Not Detect.); Rotavirus A Not Detected (Not Detect.); Salmonella Not Detected (Not Detect.); Sapovirus Not Detected (Not Detect.); Shigella sp./EIEC Not Detected (Not Detect.); Vibrio Not Detected (Not Detect.); Vibrio Cholerae Not Detected (Not Detect.); Yersinia enterocolitica Not Detected (Not Detect.)
[2023-06-04 22:09] LABS: Pancreatic Elastase-1 >500 mcg/g
== END 2023-05-28 11:16 | disposition home or self-care (01) ==
LOC: HO.HMGCLNP 11:15
PROVIDERS: PCP Nurse Practitioner Family; Visit Provider Nurse Practitioner Family
DX: R19.7 Diarrhea, unspecified (principal)
CPT/HCPCS: 82656; 87338; 87493; 87507

== ENCOUNTER 2023-06-11 13:54 | Outpatient (REF) | payer OTHER, SELFPAY | END 2023-06-11 13:55 | disposition home or self-care (01) | LOC: HO.MDS 13:54 | PROVIDERS: Visit Provider Psychiatry & Neurology Neurology | DX: G35 Multiple sclerosis (principal) | CPT/HCPCS: 96365; J2930 ==

== ENCOUNTER 2023-07-02 13:59 | Outpatient (REF) | payer OTHER, SELFPAY | END 2023-07-02 14:00 | disposition home or self-care (01) | LOC: HO.MDS 13:59 | PROVIDERS: Visit Provider Psychiatry & Neurology Neurology | DX: G35 Multiple sclerosis (principal) | CPT/HCPCS: 96365; J2930 ==

== ENCOUNTER 2023-07-23 13:54 | Outpatient (REF) | payer OTHER, SELFPAY | END 2023-07-23 13:55 | disposition home or self-care (01) | LOC: HO.MDS 13:54 | PROVIDERS: Visit Provider Psychiatry & Neurology Neurology | DX: G35 Multiple sclerosis (principal) | CPT/HCPCS: 96365; J2930 ==

== ENCOUNTER 2023-08-13 13:52 | Outpatient (REF) | payer OTHER, SELFPAY | END 2023-08-13 13:53 | disposition home or self-care (01) | LOC: HO.MDS 13:52 | PROVIDERS: Visit Provider Psychiatry & Neurology Neurology | DX: G35 Multiple sclerosis (principal) | CPT/HCPCS: 96365; J2930 ==

== ENCOUNTER 2023-08-27 11:37 | Outpatient (REF) | payer OTHER, SELFPAY ==
[2023-08-27 13:21] LABS: Hematocrit 37.4 % (42.0-52.0); Hemoglobin 12.5 g/dl (14.0-18.0); Mean Corpuscular HGB Conc 33.4 g/dl (31.0-36.0); Mean Corpuscular Hemoglobin 29.8 pg (27.0-33.0); Mean Corpuscular Volume 89.3 fL (80.0-98.0); Mean Platelet Volume 10.4 fL (9.4-12.4); Platelet Count 229 X10*3/uL (160-400); Red Blood Count 4.19 X10*6/uL (4.60-5.80); Red Cell Distribution Width 12.9 % (11.0-16.0); White Blood Count 6.5 X10*3/uL (4.8-10.8)
[2023-08-27 14:18] LABS: TSH reflex Free T4 0.79 uIU/mL (0.32-4.0)
[2023-08-28 04:05] LABS: HBc Num1 0.05 S/CO (0.00-0.79); Hepatitis B Core Antibody Nonreactive (Nonreactive)
[2023-08-28 04:31] LABS: HBS Num1 0.25 mIU/mL (0-7.99); HBsAGNum1 0.35 S/CO (0.00-0.99); Hepatitis B Surface Antigen Negative (Negative); ~HepC Num1 0.07 S/CO (0.00-0.79); ~Hepatitis B Surface Antibody NONREACTIVE (Nonreactive); ~Hepatitis C Antibody Nonreactive (Nonreactive)
[2023-08-28 18:43] LABS: Immunoglobulin A 211 mg/dL (70-320)
== END 2023-08-27 11:38 | disposition home or self-care (01) ==
LOC: HO.LAB 11:37
PROVIDERS: PCP Nurse Practitioner Family; Visit Provider Internal Medicine
DX: Z11.59 Encounter for screening for other viral diseases (principal); G35 Multiple sclerosis; R19.7 Diarrhea, unspecified; R19.4 Change in bowel habit; Z72.89 Other problems related to lifestyle
CPT/HCPCS: 36415; 82784; 84443; 85027; 86704; 86706; 86803; 87340

== ENCOUNTER 2023-08-27 11:37 | Outpatient (AMB) | payer OTHER, SELFPAY ==
--- NOTE | 2023-08-27 11:39 | A.OFFVIS_ITS ---
Intake Vital Signs 08/27/23 11:42 Height 6 ft 4 in Weight 222 lb 10.67 oz BMI 27.1 BP 182/87 H Blood Pressure Location Lt brachial Position Sitting Pulse 84 Intake Visit Reasons: Diarrhea, unspecified Intake Note: Aamir presents in the office as a new patient for diarrhea. CC: He states that he has everything he states that he suffers diarrhea, stomach pains. Loose stools - he deals with constipation once in a while and then he has diarrhea. Sometimes he is unable to make it the the bathroom and he is suffering for gas. Oily stools but denies acid reflux. No blood when he has a BM. Dealer Support Technician Required: No Allergies seasonal Allergy (Intermediate, Uncoded 08/27/23 11:46) Shortness of Breath HPI HPI Comments History of Present Illness Details 62 y.o with PMH of MS who is here to [facility] for chronic diarrhea. He reports having loose BMs since 2021 when he was first diagnosed with MS. Now for the past 6 months has been noticing worsening of his symptoms. Reports having abd discomfort and bloating assoc with loose BM after which he feels better. Occurs atleast once a week. Minimal night time sx. No unintentional weight loss. No new meds for the last 6 months. Is on once monthly solumedrol for MS. Does not think diarrhea improves when he takes the Solu-Medrol IV. No family history of colorectal cancer or inflammatory bowel disease in first- degree relatives. [facility] Medical History Multiple sclerosis Demyelinating disease Trochanteric bursitis Disorder of SI (sacroiliac) joint DDD (degenerative disc disease) Hx of cardiac murmur Asthma Seasonal allergies Right inguinal hernia Surgical History H/O colonoscopy History of dental surgery Social History Housing: House Alcohol intake: current Alcohol intake frequency: holidays/special occasions only Patient Tobacco Use Status: Never used Tobacco e-Cigarette/Vaping Use: Never Used Second Hand Smoke Exposure: No Current occupational status: employed Cognitive needs: No Hearing needs: No Vision needs: No Review of Systems Const All systems reviewed & are unremarkable except as noted in HPI and below Physical Exam Vital Signs: Last Vital Signs Pulse 84 08/27/23 11:42 BP 182/87 H 08/27/23 11:42 BMI result Body Mass Index 27.1 Gen appear: NAD HEENT: nonicteric, no cervical lymphadenopathy Chest: CTA CVS: Regular S1/S2 Abd: soft, nontender, nondistended, bowel sounds + Ext: no peripheral edema Neuro: A/Ox3, noted to move all extremities spontaneously Psych: interacting appropriately Assessment & Plan Assessment & Plan (1) Multiple sclerosis: Code(s): G35 - Multiple sclerosis (2) Diarrhea: Code(s): R19.7 - Diarrhea, unspecified (3) Change in bowel habit: Code(s): R19.4 - Change in bowel habit Plan Differentials include inflammatory bowel disease, microscopic colitis, dysmotility/SIBO due to underlying MS, IBS-D, hyperthyroidism. Celiac serology negative. Plan: -will set up for diagnostic colonoscopy with biopsies -split PEG prep instructions were reviewed with the patient and a handout was provided as well -labs including stool testing order to workup differentials as above -colo is negative, low threshold to empirically trial rifaximin or Cipro for SIBO Follow-up after colonoscopy Orders: Orders Complete Blood Count no Diff 08/27/23 R19.7 - Diarrhea, unspecified Calprotectin, Fecal 08/28/23 R19.7 - Diarrhea, unspecified Immunoglobulin A 08/27/23 R19.7 - Diarrhea, unspecified TSH reflex Free T4 08/27/23 R19.7 - Diarrhea, unspecified Hepatitis B Surface Antibody 08/27/23 Z11.59 - Encounter for screening for other viral diseases Hepatitis C Antibody 08/27/23 Z11.59 - Encounter for screening for other viral diseases Hepatitis B Core Antibody 08/27/23 Z11.59 - Encounter for screening for other viral diseases Hepatitis B Surface Antigen 08/27/23 Z11.59 - Encounter for screening for other viral diseases Medications: Discontinued ibuprofen Discontinued Reason: No Longer Medically Relevant 800 mg PO TID PRN 90 tabs 4RF pain Coding Level of Care Code New Pt Level 4 (37243) Diagnoses Multiple sclerosis G35 Diarrhea R19.7 Change in bowel habit R19.4
[2023-08-27 11:42] VITALS: BP 182/87; PULSE 84; BMI 27.1
== END 2023-08-27 12:37 | disposition home or self-care (01) ==
PROVIDERS: PCP Nurse Practitioner Family; Visit Provider Internal Medicine
DX: G35 Multiple sclerosis (principal); R19.7 Diarrhea, unspecified; R19.4 Change in bowel habit
CPT/HCPCS: 99204

== ENCOUNTER 2023-08-28 07:48 | Outpatient (REF) | payer OTHER, SELFPAY ==
[2023-09-04 12:32] LABS: Calprotectin, Fecal 52 mcg/g
== END 2023-08-28 07:49 | disposition home or self-care (01) ==
LOC: HO.LNP 07:48
PROVIDERS: Visit Provider Internal Medicine
DX: R19.7 Diarrhea, unspecified (principal)
CPT/HCPCS: 83993

== ENCOUNTER 2023-09-03 13:55 | Outpatient (REF) | payer OTHER, SELFPAY | END 2023-09-03 13:56 | disposition home or self-care (01) | LOC: HO.MDS 13:55 | PROVIDERS: Visit Provider Psychiatry & Neurology Neurology | DX: G35 Multiple sclerosis (principal) | CPT/HCPCS: 96365; J2930 ==

== ENCOUNTER 2023-09-24 14:07 | Outpatient (REF) | payer OTHER, SELFPAY ==
[2023-09-24 14:52] VITALS: BP 131/83; PULSE 70; RESP 18; TEMP 37.1; O2SAT 98; BMI 26.9
[2023-09-24] MEDS: methylPREDNISolone Sod Succ 1,000 MG in 0.9 % Sodium Chloride 100 ML 116 MG IV (15:00)
== END 2023-09-24 14:08 | disposition home or self-care (01) ==
LOC: HO.MDS 14:07
PROVIDERS: Visit Provider Psychiatry & Neurology Neurology
DX: G35 Multiple sclerosis (principal)
CPT/HCPCS: 96365; J2930

== ENCOUNTER 2023-10-07 12:21 | Day surgery (SDC) | payer OTHER, SELFPAY ==
--- NOTE | 2023-10-03 14:22 | HO.ANESPROP2 ---
Documented by User: Ruth Olivera NP 10/03/23 14:23 HPI - Anesthesia Eval Consult details Narrative: 62yo M for Colonoscopy MS ? tx PMFSH Active Problems Active Problems: All Active Problems (Updated 09/08/23 @ 13:55 by Aisha Walker MD) Change in bowel habit (Acute) Rosacea (Acute) Lumbar spondylosis (Acute) Diarrhea (Acute) Multiple sclerosis (Acute) Physical exam (Acute) Low hemoglobin (Acute) Systolic murmur (Acute) Screening PSA (prostate specific antigen) (Acute) Physical exam (Acute) Physical exam (Acute) Bony abnormality (Acute) Right hip pain (Acute) Left ankle pain (Acute) Inguinal pain (Acute) Abdominal hernia (Acute) Seasonal allergies (Acute) Right inguinal hernia (Acute) Past Medical History Medical History (Updated 09/08/23 @ 13:55 by Aisha Walker MD) Multiple sclerosis Demyelinating disease Trochanteric bursitis Disorder of SI (sacroiliac) joint DDD (degenerative disc disease) Hx of cardiac murmur Asthma Seasonal allergies Right inguinal hernia Surgical History Surgical History (Updated 10/07/23 @ 13:50 by Kasey Hernandez) H/O eye surgery H/O colonoscopy History of dental surgery Social History Social History Housing: House Alcohol intake: current Alcohol intake frequency: a few times a month Patient Tobacco Use Status: Never used Tobacco e-Cigarette/Vaping Use: Never Used Second Hand Smoke Exposure: No Use of substances other than those prescribed or required for medical reasons: No Are you DNR?: No Advance Directives: No Advance Directives Information Provided: Yes Current occupational status: employed Cognitive needs: No Hearing needs: No Vision needs: No Meds Allergies Allergy/AdvReac Type Severity Reaction Status Date / Time seasonal Allergy Intermediate Shortness Uncoded 10/07/23 13:50 of Breath Home Medications Medication Instructions Recorded Confirmed Last Taken Type baclofen 20 mg tablet 20 mg PO BID PRN Pain 11/21/21 10/07/23 Unknown History methylprednisolone sod suc(PF) 1,000 mg IV Q4W 11/21/21 10/07/23 Unknown History 1,000 mg/8 mL intravenous solution (Solu-Medrol (PF)) Assessment and Plan Assessment Anesthesia Assessment: Chart Reviewed Documented by User: Artem Oleary MD 10/07/23 14:55 PMFSH Past Medical History Medical History (Updated 09/08/23 @ 13:55 by Aisha Walker MD) Multiple sclerosis Demyelinating disease Trochanteric bursitis Disorder of SI (sacroiliac) joint DDD (degenerative disc disease) Hx of cardiac murmur Asthma Seasonal allergies Right inguinal hernia Family History Family history of problems with anesthesia: No Surgical History Surgical History (Updated 10/07/23 @ 13:50 by Kasey Hernandez) H/O eye surgery H/O colonoscopy History of dental surgery History of Problems with Anesthesia: No Social History Social History Housing: House Alcohol intake: current Alcohol intake frequency: a few times a month Patient Tobacco Use Status: Never used Tobacco e-Cigarette/Vaping Use: Never Used Second Hand Smoke Exposure: No Use of substances other than those prescribed or required for medical reasons: No Are you DNR?: No Advance Directives: No Advance Directives Information Provided: Yes Current occupational status: employed Cognitive needs: No Hearing needs: No Vision needs: No Meds Allergies Allergy/AdvReac Type Severity Reaction Status Date / Time seasonal Allergy Intermediate Shortness Uncoded 10/07/23 13:50 of Breath Home Medications Medication Instructions Recorded Confirmed Last Taken Type baclofen 20 mg tablet 20 mg PO BID PRN Pain 11/21/21 10/07/23 Unknown History methylprednisolone sod suc(PF) 1,000 mg IV Q4W 11/21/21 10/07/23 Unknown History 1,000 mg/8 mL intravenous solution (Solu-Medrol (PF)) Exam Airway Mallampati Class: I TM Dist: <=3cm Neck ROM: Full Loose/Missing/Broken Teeth: No Heart: ok Lungs: ok Assessment and Plan Assessment Anesthesia Assessment: Anesthesia Plan Discussed Final Anesthetic Review Family History of Problems with Anesthesia: No History of Problems with Anesthesia: No NPO: Yes ASA Class: III Final Preanesthetic Review: No Changes in Pt Med Stat, Meds/Allgs Chart Reviewed, Consent Obtained/Reviewed and Anes Risks/Benef Reviewed Patient Risk: Intermediate Procedure Risk: Low Anesthetic Plan Anesthetic Plan: MAC: and Agree w/ Assess. and Plan Disposition: Standard PACU
--- NOTE | 2023-10-07 12:50 | MHC.SHP ---
Pre-Procedural Eval Section A - 24 Hr Update-Section A only Date of Service: 10/07/23 Section B - Complete if H&P > 30 days Chief Complaint: Diarrhea, unspecified Details of Present Illness: PMH: Multiple sclerosis Demyelinating disease Trochanteric bursitis Disorder of SI (sacroiliac) joint DDD (degenerative disc disease) Hx of cardiac murmur Asthma Seasonal allergies Right inguinal hernia Surgical History H/O colonoscopy History of dental surgery Present Medications: see Short Stay Collaborative assessment Allergies: Allergies Allergy/AdvReac Type Severity Reaction Status Date / Time seasonal Allergy Intermediate Shortness Uncoded 08/27/23 11:46 of Breath Review of Systems Review of Systems Comment: 10 point ROS as above Exam Surgical H&P Exam: Normal: HEENT, Normal: Heart, Normal: Lungs, Normal: Extremities, Normal: Abdomen, Normal: Skin and Normal: Neurological Plan Diagnosis/Plan: Unchanged I have reviewed the history and physical and performed a pertinent physical examination on my patient. No changes have occurred unless specified. Time Spent With Patient Time: Total time managing care of this patient today ____ minutes.
[2023-10-07 13:51] VITALS: BP 142/76; PULSE 97; RESP 16; TEMP 37.1; O2SAT 98; BMI 27.5
[2023-10-07] MEDS: Lactated Ringers 1,000 ML 100 ML IVCONT (14:15)
--- NOTE | 2023-10-07 14:44 | P.OP_ITS ---
Operative Note Operative Note Date of Service: 10/07/23 Narrative: Procedure: Colonoscopy Indication: Chronic diarrhea Endoscopist: Aisha Walker MD Anesthesia Provider: Dr Artem Oleary Anesthesia type: MAC Instrument: Olympus [id number]-[id number] Consent: Indication, risks vs benefits, and alternatives were discussed with the patient who gave written informed consent to proceed. EKG, pulse, pulse oximetry and blood pressure were monitored throughout the procedure. Please see anesthesia flowsheet. Procedure: The patient was brought to the procedure room and placed in the left lateral decubitus position. IV medications were administered by the anesthesia provider in attendance. A digital rectal exam was performed which was normal. A distal attachment was cap was affixed to the tip of the colonoscope which was then inserted through the anus and advanced through the colon to the cecum at 75 cm,and terminal ileum. Appendiceal orifice and ileocecal valve were identified. Mucosa was carefully examined under high definition white light as the instrument was slowly withdrawn in a retrograde panoramic fashion. Retroflexion was performed in rectum. The procedure was not difficult. There were no immediate obvious complications. The quality of the prep was BBPS: 3+2+3 = adequate Withdrawal time 11 minutes. Limitations: No limitations. Findings: Mucosa: Melanosis coli noted josefa on left side but otherwise mucosa normal to cecum and terminal ileum. Cold forceps biopsies were taken from right and left colon to r/o microscopic colitis. Protruding lesions: * Medium internal hemorrhoids without stigmata of recent bleeding. Impression: 1. Normal colon and terminal ileum mucosa (biopsy) 2. Internal hemorrhoids Recommendations: - Follow path results. - Repeat colonoscopy in 10 years for asymptomatic colorectal ca screening.
[2023-10-07 15:16] VITALS: BP 125/53; PULSE 76; RESP 16; TEMP 36.2; O2SAT 97
[2023-10-07 15:36] VITALS: BP 132/74; PULSE 82; RESP 18; TEMP 36.1; O2SAT 97
== END 2023-10-07 15:36 | disposition home or self-care (01) ==
PROVIDERS: PCP Nurse Practitioner Family; Visit Provider Internal Medicine
PROC: 0DJD8ZZ Inspection of Lower Intestinal Tract, Via Natural or Artificial Opening Endoscopic (ICD-10-PCS; CPT 45378; principal; 2023-10-07 13:50)
DX: K63.89 Other specified diseases of intestine (principal); K64.8 Other hemorrhoids; R19.4 Change in bowel habit; G35 Multiple sclerosis; J45.909 Unspecified asthma, uncomplicated; R01.1 Cardiac murmur, unspecified
CPT/HCPCS: 45380; 88305; J2704

== ENCOUNTER → 2023-10-07 12:21 | Outpatient (BNV) | payer OTHER, SELFPAY | PROVIDERS: PCP Nurse Practitioner Family; Visit Provider Internal Medicine | DX: K52.9 Noninfective gastroenteritis and colitis, unspecified (principal); K63.89 Other specified diseases of intestine; K64.8 Other hemorrhoids | CPT/HCPCS: 45380 ==

== ENCOUNTER 2023-10-15 13:40 | Outpatient (REF) | payer OTHER, SELFPAY ==
[2023-10-15 13:46] VITALS: BP 130/84; PULSE 70; RESP 18; TEMP 36
[2023-10-15] MEDS: methylPREDNISolone Sod Succ 1,000 MG in 0.9 % Sodium Chloride 100 ML 116 MG IV (14:11)
== END 2023-10-15 13:41 | disposition home or self-care (01) ==
LOC: HO.MDS 13:40
PROVIDERS: Visit Provider Psychiatry & Neurology Neurology
DX: G35 Multiple sclerosis (principal)
CPT/HCPCS: 96365; J2930

== ENCOUNTER 2023-10-20 10:32 | Outpatient (AMB) | payer OTHER, SELFPAY ==
[2023-10-20 10:35] VITALS: BP 145/86; PULSE 76; BMI 28.1
--- NOTE | 2023-10-20 10:35 | MHC.OFFVIS ---
Intake Vital Signs 10/20/23 10:35 Height 6 ft 3 in Weight 224 lb 13.944 oz BMI 28.1 BP 145/86 H Blood Pressure Location Lt brachial Position Sitting Pulse 76 Intake Visit Reasons: s/p colon Intake Note: Aamir presents in the office as a follw up colonoscopy. CC: He states that he is here for results. He states that he was not having regular bowel movements. It has been okay since having the procedure. Cardiac Rehab Nurse Required: No Allergies seasonal Allergy (Intermediate, Uncoded 10/20/23 10:37) Shortness of Breath HPI HPI Comments History of Present Illness Details 62 y.o with PMH of MS who is here for followup for chronic diarrhea. He reports having loose BMs since 2021 when he was first diagnosed with MS. Now for the past 6 months has been noticing worsening of his symptoms. Reports having abd discomfort and bloating assoc with loose BM after which he feels better. Occurs atleast once a week. Minimal night time sx. No unintentional weight loss. No new meds for the last 6 months. Is on once monthly solumedrol for MS. Does not think diarrhea improves when he takes the Solu-Medrol IV. No family history of colorectal cancer or inflammatory bowel disease in first-degree relatives. 10/07/23: Colonoscopy 1. Normal colon and terminal ileum mucosa (biopsy) 2. Internal hemorrhoids Recommendations: - Follow path results. - Repeat colonoscopy in 10 years for asymptomatic colorectal ca screening. Diagnosis A. Colon, right, biopsy: Colonic mucosa within normal limits. B. Colon, left, biopsy: Melanosis coli; otherwise colonic mucosa within normal limits. Comment: Diagnostic features of microscopic colitis are not identified 10/20/23: Here for post colo follow up. Currently no symptoms. Diarrhea actually got better after doing a colon clean out ? overflow diarrhea. [facility] Medical History Multiple sclerosis Demyelinating disease Trochanteric bursitis Disorder of SI (sacroiliac) joint DDD (degenerative disc disease) Hx of cardiac murmur Asthma Seasonal allergies Right inguinal hernia Surgical History H/O eye surgery H/O colonoscopy History of dental surgery Social History Housing: House Alcohol intake: current Alcohol intake frequency: a few times a month Patient Tobacco Use Status: Never used Tobacco e-Cigarette/Vaping Use: Never Used Second Hand Smoke Exposure: No Current occupational status: employed Cognitive needs: No Hearing needs: No Vision needs: No Review of Systems Const All systems reviewed & are unremarkable except as noted in HPI and below Physical Exam Vital Signs: Last Vital Signs Pulse 76 10/20/23 10:35 BP 145/86 H 10/20/23 10:35 BMI result Body Mass Index 28.1 Gen appear: NAD HEENT: nonicteric, no cervical lymphadenopathy Chest: CTA CVS: Regular S1/S2 Abd: soft, nontender, nondistended, bowel sounds + Ext: no peripheral edema Neuro: A/Ox3, noted to move all extremities spontaneously Psych: interacting appropriately Assessment & Plan Assessment & Plan (1) Change in bowel habit: Code(s): R19.4 - Change in bowel habit (2) Colon cancer screening: Code(s): Z12.11 - Encounter for screening for malignant neoplasm of colon Plan #CHanges in bowel habits: Discussed wiht the pt that once weekly diarrhea may have been secondary to overflow diarrhea after multiple days of constipation. Pt reports normalisation of bowel habits since having a colon clean out for the colonoscopy which is alos consistent with this. Plan: - Encourage good hydration and fiber intake - Take senna 2 tabs PRN for no BMs x2 days #Colorectal ca screening: No polyps noted on colo. Repeat recommended in 10 years Follow up in 6 months as per pt's request Coding Level of Care Code Est Pt Level 3 (17675) Diagnoses Change in bowel habit R19.4 Colon cancer screening Z12.11
== END 2023-10-20 11:05 | disposition home or self-care (01) ==
PROVIDERS: PCP Nurse Practitioner Family; Visit Provider Internal Medicine
DX: R19.4 Change in bowel habit (principal); Z12.11 Encounter for screening for malignant neoplasm of colon
CPT/HCPCS: 99213

== ENCOUNTER → 2023-10-20 10:32 | Outpatient (BNVA) | payer OTHER, SELFPAY | PROVIDERS: PCP Nurse Practitioner Family; Visit Provider Internal Medicine ==

== ENCOUNTER 2023-12-17 16:10 | Outpatient (AMB) | payer OTHER, SELFPAY ==
--- NOTE | 2023-12-17 16:24 | MHC.PC.OV ---
Vital Signs 12/17/23 16:26 Height 6 ft 3 in Weight 219 lb BMI 27.4 BP 130/80 Blood Pressure Location Rt brachial Position Sitting Pulse 78 Pulse Source Pulse Oximeter Pulse Oximetry (%) 97 Oxygen Delivery Method Room Air Intake Visit Reasons: Annual PE Intake Note: Patient here for physical exam. colonoscopy: 2023 due back in 10 yrs Allergies seasonal Allergy (Intermediate, Uncoded 12/17/23 17:05) Shortness of Breath Medication List - Last Reconciled 12/17/23 by IVY Isbell albuterol sulfate 90 mcg/actuation 2 puffs PO Q6H PRN 30 days baclofen 20 mg PO BID PRN fluticasone propion-salmeterol 100-50 mcg/dose 1 inh inhalation BID 30 days ibuprofen 800 mg PO TID PRN 30 days methylprednisolone sod suc(PF) (Solu-Medrol (PF)) 1,000 mg IV Q4W metronidazole 1% 1 appl topical DAILY 14 days sildenafil (Viagra) 25 mg PO DAILY PRN 30 days Tobacco use date assessed: 12/17/23 Dental Screening Dental Screen Date: 12/17/23 Did you have a dental visit in the last 12 months?: Yes Did you have a dental problem in the last 6 months where you did not have access to dental care?: No Was dental information given to patient?: Patient has dentist HPI Annual PE HPI Details Pt is here for a PE. Will order labs. Colon screen is up to date. Due for PSA in the near future, will order. Denies dribbling with urination, weak stream, and frequent nocturia. Pt follows up with GI. Pt sees a neurologist (MS). [facility] Medical History Multiple sclerosis Demyelinating disease Trochanteric bursitis Disorder of SI (sacroiliac) joint DDD (degenerative disc disease) Hx of cardiac murmur Asthma Seasonal allergies Right inguinal hernia Surgical History H/O eye surgery H/O colonoscopy History of dental surgery Social History Housing: House Alcohol intake: current Alcohol intake frequency: a few times a month Patient Tobacco Use Status: Never used Tobacco e-Cigarette/Vaping Use: Never Used Second Hand Smoke Exposure: No Current occupational status: employed Cognitive needs: No Hearing needs: No Vision needs: No Questionnaire PHQ-9 Over the last 2 weeks, how often have you been bothered by any of the following problems? 1. Little interest or pleasure in doing things: not at all 2. Feeling down, depressed, or hopeless: not at all 3. Trouble falling or staying asleep, or sleeping too much: not at all 4. Feeling tired or having little energy: not at all 5. Poor appetite or overeating: not at all 6. Feeling bad about yourself - or that you are a failure or have let yourself or your family down: not at all 7. Trouble concentrating on things, such as reading the newspaper or watching television: not at all 8. Moving or speaking so slowly that other people could have noticed. Or the opposite - being so fidgety or restless that you have been moving around a lot more than usual: not at all 9. Thoughts that you would be better off or of hurting yourself in some way: not at all Total score: 0 Depression Screening Interpretation: Negative Depression Screening Done: Yes 92696 - PHQ-9 Billing: Yes Source: Developed by Drs. Tommy Robles, Heaven James, Leoncio Carreno and colleagues, with an educational roberta from [employer]. Thrive Questionnaire Date Thrive assessed: 12/17/23 I am a: Patient What is your living situation today?: I have a steady place to live Within the past 12 months, did the food you bought not last and you didn't have the money to get more?: Never true Within the past 12 months, did you worry whether your food would run out before you got money to buy more?: Never true Do you have trouble paying for medicines?: Yes Do you have trouble getting transportation to medical appointments?: No Do you have trouble paying your heating and electricity bill?: No Do you have trouble taking care of your child, family member or friend?: No Do you have trouble with day-to-day activities such as bathing, preparing meals, shopping, managing finances, etc.?: No Are you currently unemployed and looking for a job?: No Are you interested in more education?: No Currently or been in a relationship where the following occur: I choose not to answer this question THRIVE Score: 0 AUDIT C Alcohol Use Questionnaire (AUDIT-C) 1. How often do you have a drink containing alcohol?: Never 3. How often do you have six or more drinks on one occasion?: Never Total Score: 0 Score Reviewed/Action Taken: No OBI-7 AMB Questionnaire OBI-7 Date OBI - 7 assessed: 12/17/23 Feeling nervous, anxious, or on edge: 0 = Not at all Not being able to stop or control worryin = Not at all Worrying too much about different things: 0 = Not at all Trouble relaxin = Not at all Being so restless that it is hard to sit still: 0 = Not at all Becoming easily annoyed or irritable: 0 = Not at all Feeling afraid as if something awful might happen: 0 = Not at all Total OBI-7 score (0-4 normal; 5-9 mild; 10-14 moderate; 15-21 severe): 0 Source: Developed by Drs. Tommy Robles, Heaven James, Leoncio Carreno and colleagues, with an educational roberta from [employer]. OBI-7 Assessment Billing OBI-7 Assessment Tool: OBI-7 Assessment 61990 Review of Systems Const Denies chills and Denies fever(s) Eyes Denies blurry vision ENT Denies vertigo, Denies dizziness and Denies sore throat Card Denies chest pain at rest, Denies chest pain with activity, Denies diaphoresis, Denies dyspnea and Denies dyspnea on exertion Resp Denies cough, Denies dyspnea, Denies dyspnea on exertion and Denies wheezing GI Denies abdominal pain, Denies melena, Denies hematochezia, Denies constipation, Denies diarrhea and Denies loose stools Denies hematuria Musc Denies numbness and Denies tingling Skin/Breast Denies lesions Neuro Denies vertigo, Denies dizziness, Denies numbness and Denies tingling Psych Denies anxiety, Denies depression, Denies homicidal ideation, Denies suicidal ideation and Denies other (substance abuse) Aller/Immun Denies wheezing Physical exam (Primary Care) Vital Signs: Last Vital Signs Pulse 78 12/17/23 16:26 BP 130/80 12/17/23 16:26 Pulse Ox 97 12/17/23 16:26 Oxygen Delivery Method Room Air 12/17/23 16:26 BMI result Body Mass Index 27.4 Tobacco/Smoking Status: Tobacco use Status Tobacco use date assessed 12/17/23 12/17/23 16:32 Patient Tobacco Use Status Never used Tobacco 12/17/23 16:25 e-Cigarette/Vaping Use Never Used 12/17/23 16:25 PHQ-9: PHQ-9 Score PHQ-9: Total score 0 12/17/23 16:40 Depression Screening Interpretation: Negative Thrive Assessment: Date of Thrive Assessment Date Thrive assessed 12/17/23 12/17/23 16:35 Currently or been in a relationship where the following occur: I choose not to answer this question Const General: cooperative Nutritional Appearance: well nourished Orientation/consciousness: patient oriented x3 HENMT Head: Yes normal to inspection, Yes normocephalic and Yes atraumatic Ears: TM's normal bilaterally Eyes General: appearance normal, both eyes and all related structures Alignment and Position: alignment normal and position normal Neck Neck: Yes normal visual inspection and Yes no lymphadenopathy Thyroid: Thyroid normal Resp Effort & Inspection: normal respiratory effort Auscultation: clear to auscultation bilaterally and wheezes (left lower (faint)) expiratory wheezes Cardio Rate: regular rate Rhythm: regular rhythm Heart sounds: S1 normal heart sound present, S2 normal heart sound present and Murmur heart sound present systolic GI Palpation (GI): Soft to palpation and nontender Auscultation: normal bowel sounds Male General Exam: Yes normal external exam Penis: normal penis Scrotum: scrotum normal, testes descended bilaterally and no inguinal hernias Testes: no testicular mass Skin Rashes: no rashes Neuro Other: moves all extrem, though weakness noted to BLE (L>R)- weakness. General: patient oriented x3 and deep tendon reflexes 2+ bilaterally Romberg Test: Negative (though difficult time performing) Extrem Right lower extremity: edema Details: pitting and 1+ Left lower extremity: edema Details: pitting and 1+ Psych Appearance: grossly normal Mental Status: mental status grossly normal Speech and movement: Normal speech and movement present Affect: normal affect Attitude: cooperative Thought process: Normal thought process present Thought content: Normal thought content present Insight: Good insight present (Psych) Judgement: Good judgement present (Psych) Assessment and Plan Assessment & Plan (1) Physical exam: Code(s): Z00.00 - Encounter for general adult medical examination without abnormal findings (2) Screening PSA (prostate specific antigen): Code(s): Z12.5 - Encounter for screening for malignant neoplasm of prostate Orders: Orders Comprehensive [place]. Panel Fast Today Z00.00 - Encounter for general adult medical examination without abnormal findings TSH reflex Free T4 Today Z00.00 - Encounter for general adult medical examination without abnormal findings Prostate Specific Antigen Scr Today Z12.5 - Encounter for screening for malignant neoplasm of prostate Complete Blood Count Auto Diff Today Z00.00 - Encounter for general adult medical examination without abnormal findings UA CC w/rflx Micro + Cult Today Z00.00 - Encounter for general adult medical examination without abnormal findings Lipid Panel Today Z00.00 - Encounter for general adult medical examination without abnormal findings Medications: Changed From ibuprofen 800 mg PO TID To ibuprofen 800 mg PO TID PRN 90 tabs 0RF pain 30 days Refilled fluticasone propion-salmeterol 100-50 mcg/dose 1 inh inhalation BID 60 ea 3RF 30 days sildenafil (Viagra) administer 30 minutes to 4 hours before activity 25 mg PO DAILY PRN 7 tabs 11RF sexual activity 30 days albuterol sulfate 90 mcg/actuation 2 puffs PO Q6H PRN 8.5 grams 3RF Pain 30 days Coding Level of Care Code Est Pt Prev Care 40-64y(84632) Diagnoses Physical exam Z00.00 Screening PSA (prostate specific antigen) Z12.5 Additional Codes OBI-7 Assessment Billing - OBI-7 Assessment Tool: OBI-7 Assessment 70728 ([id number])
[2023-12-17 16:26] VITALS: BP 130/80; PULSE 78; O2SAT 97; BMI 27.4
== END 2023-12-17 16:55 | disposition home or self-care (01) ==
LOC: HO.HMGC 16:10
PROVIDERS: PCP Nurse Practitioner Family; Visit Provider Nurse Practitioner Family
DX: Z00.00 Encounter for general adult medical examination without abnormal findings (principal); Z12.5 Encounter for screening for malignant neoplasm of prostate
CPT/HCPCS: 99396

== ENCOUNTER 2024-06-16 15:58 | Outpatient (AMB) | payer OTHER, SELFPAY ==
--- NOTE | 2024-06-16 16:02 | A.OFFVIS_ITS ---
Vital Signs 06/16/24 16:06 Height 6 ft 3 in Weight 216 lb 0.848 oz BMI 27.0 BP 143/85 H Blood Pressure Location Lt brachial Position Sitting Pulse 70 Intake Visit Reasons: 6 month follow up constipation Intake Note: Aamir presents in the office as a 6 month follow up constipation. CC: did the colonoscopy and he states it helped him out. he has a digestive problem. He researched and states that he does not drink cold liquids at night. He has wet stools at times. He does not want to travel or go anywhere because he has been having diarrhea. He states he will go weeks with normal BMs and then he will randomly have a flare up of diarrhea where he needs to empty his bowels. Donor Services Technician Required: No Allergies seasonal Allergy (Intermediate, Uncoded 06/16/24 16:06) Shortness of Breath HPI Comments Details: 62 y.o with PMH of MS who is here for followup for chronic diarrhea. He reports having loose BMs since 2021 when he was first diagnosed with MS. Now for the past 6 months has been noticing worsening of his symptoms. Reports having abd discomfort and bloating assoc with loose BM after which he feels better. Occurs atleast once a week. Minimal night time sx. No unintentional weight loss. No new meds for the last 6 months. Is on once monthly solumedrol for MS. Does not think diarrhea improves when he takes the Solu-Medrol IV. No family history of colorectal cancer or inflammatory bowel disease in first- degree relatives. 10/07/23: Colonoscopy 1. Normal colon and terminal ileum mucosa (biopsy) 2. Internal hemorrhoids Recommendations: - Follow path results. - Repeat colonoscopy in 10 years for asymptomatic colorectal ca screening. Diagnosis A. Colon, right, biopsy: Colonic mucosa within normal limits. B. Colon, left, biopsy: Melanosis coli; otherwise colonic mucosa within normal limits. Comment: Diagnostic features of microscopic colitis are not identified 10/20/23: Here for post colo follow up. Currently no symptoms. Diarrhea actually got better after doing a colon clean out ? overflow diarrhea. 06/16/24: Doing very well. Reports has similar issue where he will pass small stools x 1-2 weeks and then proceed to have a day of large loose BMs - still suspicious for overflow diarrhea. This occurs may be one-two times a month. Otherwise, MS has been better controlled. [facility] Medical History Multiple sclerosis Demyelinating disease Trochanteric bursitis Disorder of SI (sacroiliac) joint DDD (degenerative disc disease) Hx of cardiac murmur Asthma Seasonal allergies Right inguinal hernia Surgical History H/O eye surgery H/O colonoscopy History of dental surgery Social History Housing: House Alcohol intake: current Alcohol intake frequency: a few times a month Patient Tobacco Use Status: Never used Tobacco e-Cigarette/Vaping Use: Never Used Second Hand Smoke Exposure: No Current occupational status: employed Cognitive needs: No Hearing needs: No Vision needs: No Review of Systems Const All systems reviewed & are unremarkable except as noted in HPI and below Physical Exam Vital Signs: Last Vital Signs Pulse 70 06/16/24 16:06 BP 143/85 H 06/16/24 16:06 BMI result Body Mass Index 27.0 Assessment & Plan Assessment & Plan (1) Change in bowel habit: Code(s): R19.4 - Change in bowel habit Category: Medical (2) Colon cancer screening: Code(s): Z12.11 - Encounter for screening for malignant neoplasm of colon Category: Medical Plan #CHanges in bowel habits: Discussed wiht the pt that once weekly diarrhea may have been secondary to overflow diarrhea after multiple days of constipation. Advise routine use of senna at least 3 times a week and josefa for 1-2 days before he has to travel so he is not afraid of having diarrhea on the road. Plan: - Encourage good hydration and fiber intake - Take senna 2 tabs 3 times a week for timed evacuation #Colorectal ca screening: No polyps noted on colo. Repeat recommended in 2033 Follow up in a year Coding Level of Care Code Est Pt Level 3 (56645) Diagnoses Change in bowel habit R19.4 Colon cancer screening Z12.11
[2024-06-16 16:06] VITALS: BP 143/85; PULSE 70; BMI 27.0
== END 2024-06-16 16:40 | disposition home or self-care (01) ==
PROVIDERS: PCP Nurse Practitioner Family; Visit Provider Internal Medicine
DX: R19.4 Change in bowel habit (principal); Z12.11 Encounter for screening for malignant neoplasm of colon
CPT/HCPCS: 99213

== ENCOUNTER 2024-12-22 15:24 | Outpatient (AMB) | payer OTHER, SELFPAY ==
--- NOTE | 2024-12-22 15:27 | A.OFFPC_ITS ---
Vital Signs 12/22/24 15:31 Weight 218 lb 4 oz BP 138/62 Blood Pressure Location Rt brachial Position Sitting Respiration 14 Pulse 73 Pulse Source Pulse Oximeter Temp 97.9 F Temp Source Oral Pulse Oximetry (%) 98 Oxygen Delivery Method Room Air Intake Visit Reasons: PE Intake Note: Pt is here today for his PE: Last colonoscopy- 10/07/23 Allergies seasonal Allergy (Intermediate, Uncoded 06/16/24 16:06) Shortness of Breath Medication List - Last Reconciled 12/22/24 by YENNI IsbellP- albuterol sulfate 90 mcg/actuation 2 puffs PO Q6H PRN 30 days baclofen 20 mg PO BID PRN fluticasone propion-salmeterol 100-50 mcg/dose 1 inh inhalation BID 30 days ibuprofen 800 mg PO TID PRN 30 days sildenafil (Viagra) 25 mg PO DAILY PRN 30 days Tobacco use date assessed: 12/22/24 Fall risk assessment: No Falls in past year Last assessed Fall Risk: 12/22/24 Dental Screening Dental Screen Date: 12/22/24 Did you have a dental visit in the last 12 months?: Yes Did you have a dental problem in the last 6 months where you did not have access to dental care?: No Was dental information given to patient?: Patient has dentist HPI PE HPI Details History of Present Illness The patient is a 64-year-old male presenting for a wellness visit and monitoring of chronic conditions. He has a history of Multiple Sclerosis, with management overseen by a neurologist. The condition results in an abnormal gait, primarily impacting the left lower extremity, with noted weakness and episodes of locking. He denies experiencing chest pain, respiratory difficulties, gastrointestinal distress, or changes in bowel habits. He also reports no urinary issues. A systolic murmur was identified in 2020, with a normal echocardiogram result at that time. He plans to have this test repeated next year. Regular dermatology visits are part of his healthcare routine. Health Maintenance - Colon cancer screening is up to date. - PSA levels have been entered for monit orialy. - Echocardiogram performed in 2020 was n ormal; patient plans to repeat it next year. Social History - Regular visits to a neurologist for Mu ltiple Sclerosis management. - Routine dermatology consultations. Review of Systems - Neurological: Reports abnormal gait an d weakness in the left lower extremity. - Cardiovascular: Denies chest pain. - Respiratory: Denies shortness of breat h. - Gastrointestinal: Denies abdominal susan n, blood in stool, constipation, diarrhea. - Genitourinary: Denies urinary issues. denies any si or hi Physical Exam General: Cooperative, healthy appearing, comfortable, no acute distress and well developed Orientation: Patient oriented x3 Limitations: Abnormal gait, mostly in the left lower extremity with some weakness and occasional locking Head: Normal to inspection Ears: Hearing grossly normal bilaterally Nose: Normal external nose present Face and sinus: Normal facial exam Eyes: Appearance normal, both eyes and all related structures Neck: Normal visual inspection and Yes full ROM Respiratory: Normal respiratory effort and able to speak in complete sentences. Clear to auscultation bilaterally Cardiovascular: Systolic murmur present. Regular rate and rhythm. Normal S1 and S2 GI: Normal to inspection. Soft to palpation and nontender Skin: No rashes or lesions noted Neuro: Patient oriented x3 Extremities: Abnormal gait, mostly in the left lower extremity with some weakness and occasional locking Results - Labs: PSA levels entered. - Tests and Diagnostics: Echocardiogram in 2020 showed normal results. Plan The plan for this visit focused on monitoring the patient's Multiple Sclerosis and related symptoms, including his abnormal gait and left lower extremity weakness. Continued neurological follow-up was advised. We reviewed the systolic murmur, with plans to repeat the echocardiogram next year. PSA levels were assessed as part of routine health maintenance. Regular dermatology consultations will continue, and no new treatments were initiated. Discussion Notes I discussed with the patient the nature of his Multiple Sclerosis and the importance of ongoing neurological care for symptom management. We reviewed the past echocardiogram results and the plan to repeat this test next year to monitor the systolic murmur. The patient was informed about the PSA level checks as part of his health maintenance strategy. We also emphasized the importance of maintaining regular dermatology visits. No immediate changes to his treatment plan were necessary, and the patient was agreeable to the current management strategy. Patient Instructions - Continue regular neurology and dermato logy appointments. - Plan to repeat echocardiogram next yea r. - Maintain current health maintenance pr actices. - Report any new or worsening symptoms p romptly. [facility] Medical History Multiple sclerosis Demyelinating disease Trochanteric bursitis Disorder of SI (sacroiliac) joint DDD (degenerative disc disease) Hx of cardiac murmur Asthma Seasonal allergies Right inguinal hernia Surgical History H/O eye surgery H/O colonoscopy History of dental surgery Social History Housing: House Alcohol intake: current Alcohol intake frequency: a few times a month Patient Tobacco Use Status: Never used Tobacco e-Cigarette/Vaping Use: Never Used Second Hand Smoke Exposure: No Current occupational status: employed Cognitive needs: No Hearing needs: No Vision needs: No Questionnaire PHQ-9 Over the last 2 weeks, how often have you been bothered by any of the following problems? 80437 - PHQ-9 Billing: Patient declined-do not bill Source: Developed by Drs. Tommy Robles, Heaven James, Leoncio Carreno and colleagues, with an educational roberta from [employer]. Thrive Questionnaire Date Thrive assessed: 12/17/23 OBI-7 AMB Questionnaire BOI-7 Date OBI - 7 assessed: 12/17/23 Source: Developed by Drs. Tommy Robles, Heaven James, Leoncio Carreno and colleagues, with an educational roberta from [employer]. Physical exam (Primary Care) Vital Signs: Last Vital Signs Temp 97.9 F 12/22/24 15:31 Pulse 73 12/22/24 15:31 Resp 14 12/22/24 15:31 BP 138/62 12/22/24 15:31 Pulse Ox 98 12/22/24 15:31 Oxygen Delivery Method Room Air 12/22/24 15:31 Tobacco/Smoking Status: Tobacco use Status Tobacco use date assessed 12/22/24 12/22/24 15:37 Patient Tobacco Use Status Never used Tobacco 12/22/24 15:29 e-Cigarette/Vaping Use Never Used 12/22/24 15:29 Thrive Assessment: Date of Thrive Assessment Date Thrive assessed 12/17/23 12/22/24 15:29 Coding Level of Care Code Est Pt Prev Care 40-64y(90441) Diagnoses Physical exam Z00.00 Screening PSA (prostate specific antigen) Z12.5 Assessment & Plan Assessment & Plan (1) Physical exam: Code(s): Z00.00 - Encounter for general adult medical examination without abnormal findings Category: Medical (2) Screening PSA (prostate specific antigen): Code(s): Z12.5 - Encounter for screening for malignant neoplasm of prostate Category: Medical Plan . Orders: Orders TSH reflex Free T4 Today Z00.00 - Encounter for general adult medical examination without abnormal findings Lipid Panel Today Z00.00 - Encounter for general adult medical examination without abnormal findings Prostate Specific Antigen Scr Today Z12.5 - Encounter for screening for malignant neoplasm of prostate Complete Blood Count Auto Diff Today Z00.00 - Encounter for general adult medical examination without abnormal findings Comprehensive [place]. Panel Fast Today Z00.00 - Encounter for general adult medical examination without abnormal findings UA CC w/rflx Micro + Cult Today Z00.00 - Encounter for general adult medical examination without abnormal findings Pneumococcal 20 Immunization Today Z23 - Encounter for immunization Medications: New pneumoc 20-javier conj-dip cr(PF) 0.5 mL IM ONCE 0.5 mL 0RF Z23 - Encounter for immunization Refilled ibuprofen 800 mg PO TID 30 days PRN 90 tabs 4RF pain albuterol sulfate 90 mcg/actuation 2 puffs PO Q6H 30 days PRN 8.5 grams 3RF Pain fluticasone propion-salmeterol 100-50 mcg/dose 1 inh inhalation BID 30 days 60 ea 3RF
[2024-12-22 15:31] VITALS: BP 138/62; PULSE 73; RESP 14; TEMP 36.6; O2SAT 98
== END 2024-12-22 16:43 | disposition home or self-care (01) ==
LOC: HO.HMCC 15:24
PROVIDERS: PCP Nurse Practitioner Family; Visit Provider Nurse Practitioner Family
DX: Z00.00 Encounter for general adult medical examination without abnormal findings (principal); Z12.5 Encounter for screening for malignant neoplasm of prostate; Z23 Encounter for immunization

== ENCOUNTER → 2024-12-22 15:24 | Outpatient (BNVA) | payer OTHER, SELFPAY | PROVIDERS: PCP Nurse Practitioner Family; Visit Provider Nurse Practitioner Family | DX: Z00.00 Encounter for general adult medical examination without abnormal findings (principal); Z23 Encounter for immunization; G35 Multiple sclerosis | CPT/HCPCS: 90471; 90677 ==

== ENCOUNTER 2025-04-13 15:34 | Outpatient (AMB) | payer OTHER, SELFPAY ==
--- NOTE | 2025-04-13 16:02 | A.OFFVIS_ITS ---
Intake Visit Reasons: 6 month MS Allergies seasonal Allergy (Intermediate, Uncoded 04/13/25 16:06) Shortness of Breath Medication List - Last Reconciled 04/13/25 by Roseann Gong CNP albuterol sulfate 90 mcg/actuation 2 puffs PO Q6H PRN 30 days baclofen 20 mg PO BID PRN fluticasone propion-salmeterol 100-50 mcg/dose 1 inh inhalation BID 30 days ibuprofen 800 mg PO TID PRN 30 days sildenafil (Viagra) 25 mg PO DAILY PRN 30 days HPI Comments Details: He was doing great. Getting IV Solumedrol every 3 weeks, tolerating well and able to tell when next dose is due. Gait disorder, no falls. No significant pain, leg cramps, or spasms. Uses baclofen as needed infrequently.?No numbness /tingling. No new MS symptoms. Sleep was okay. Energy was okay. Working 2 part- time jobs, 7 days/week. Feels major improvement with IV Solumedrol. Change in gait starting around 2019, limps hard and sometimes drags legs, L > R, and constant stiffness in leg. Saw multiple physicians, had MRIs and XRs of hips and legs, had PT, none of which helped. No bladder control problems. No numbness/tingling or pain. No complaint in upper extremities. [facility] Medical History Multiple sclerosis Demyelinating disease Trochanteric bursitis Disorder of SI (sacroiliac) joint DDD (degenerative disc disease) Hx of cardiac murmur Asthma Seasonal allergies Right inguinal hernia Surgical History H/O eye surgery H/O colonoscopy History of dental surgery Social History Housing: House Alcohol intake: current Alcohol intake frequency: a few times a month Patient Tobacco Use Status: Never used Tobacco e-Cigarette/Vaping Use: Never Used Second Hand Smoke Exposure: No Current occupational status: employed Cognitive needs: No Hearing needs: No Vision needs: No Review of Systems Const Denies chills, Denies daytime sleepiness, Denies difficulty sleeping, Denies fatigue, Denies fever(s), Denies frequent falls, Denies headache(s), Denies increased appetite, Denies poor appetite, Denies snoring, Reports weakness, D enies weight gain and Denies weight loss Eyes Denies loss of vision ENT Denies vertigo, Denies dizziness, Denies headache(s) and Denies neck pain Card Denies chest pain at rest, Denies chest pain with activity, Denies syncope, Denies leg edema, Denies palpitations, Denies dyspnea and Denies dyspnea on exertion Resp Denies cough, Denies dyspnea, Denies dyspnea on exertion and Denies snoring GI Denies abdominal pain, Denies constipation, Denies heartburn, Denies diarrhea a nd Denies nausea Denies urinary frequency, Denies urinary incontinence and Denies urinary urgency Musc Reports abnormal gait (balance difficulty), Denies back pain, Denies myalgias, Denies arthralgias, Denies neck pain, Denies numbness and Denies tingling Neuro Reports abnormal gait (balance difficulty), Denies vertigo, Denies dizziness, Denies syncope, Denies frequent falls, Denies headache(s), Denies lack of coordination, Denies loss of vision, Denies memory loss, Denies numbness, Denies Other visual disturbances, Denies restless legs, Denies seizure-like activity, Denies tingling, Denies paresthesias, Denies tremor(s) and Reports weakness Psych Denies anxiety, Denies depression, Denies auditory hallucinations, Denies memory loss and Denies visual hallucinations Endo Denies fatigue and Denies palpitations Physical Exam Const Other: General Appearance:? normal, in no acute distress. Heart:? S1, S2 normal, no murmurs. Lungs:? clear anteriorly and posteriorly. Musculoskeletal:? normal. Extremities:? no edema. Psych:? alert, oriented, cognitive function intact, cooperative with exam. Neuro Other: Abnormal Neurological Findings:?Left hand finger spread weakness 5-/5. Weakness in Ileopsoas L 5-/5, left foot dorfiflexion. Bilateral Hyperreflexia and left extensor plantar. Walks with stiff legged spastic gait left more than right Mental Status: alert and oriented X 3. Normal attention, orientation, memory, and affect. Cranial Nerves: Pupils are equal, round, and reactive to light. External ocular muscles are intact. Visual alcantar are full, no ptosis. Face is symmetrical, no facial weakness or droop. Facial sensations are normal. Tongue protrudes in midline. Palate elevates symmetrically. Shoulder shrugging is normal Motor Examination: As above. Increased tone in lower extremities. DTRs are 3+ in UE, 3-4+ in LE. Plantars are equivocal on right and extensor on left. Sensory Exam: Normal light touch, temperature, pinprick, vibration, and joint- position sensations. Rhomberg sign is absent. Coordination: No ataxia. No titubation. Gait Exam: As above. Cerebellar Signs: [id number] is okay. Extrapyramidal System: No tremor, rigidity with normal facial expressions. No bradykinesia. No bradyphrenia. Normal arm swing and posture. No propulsion or retropulsion. Speech: Normal. Results Reviewed Results Reviewed: 05/17/21 MRI Brain: Mild supratentorial white matter changes. The distribution of these changes is nonspecific but can be seen in the setting of demyelinating processes in the appropriate clinical setting 05/17 MRI C spine : Nonspecific patchy T2 hyperintensities within the cervical spinal cord. No associated enhancement to suggest acute insults. No evidence of cord compression. These changes are nonspecific but may represent chronic sequela of inflammatory/demyelinating process. Assessment & Plan Assessment & Plan (1) Multiple sclerosis: Code(s): G35 - Multiple sclerosis Category: Medical Plan: Continue baclofen 20mg 1 tablet three times a day as needed for pain/spasticity. Continue solu-medrol 1000mg in 100mL NS IV infusion every 3 weeks. Discussed option for MRI, declining at this time. Coding Level of Care Code Est Pt Level 4 (52695) Diagnoses Multiple sclerosis G35
== END 2025-04-13 16:23 | disposition home or self-care (01) ==
LOC: HO.HSM 15:35
PROVIDERS: PCP Nurse Practitioner Family; Visit Provider Registered Nurse
DX: G35 Multiple sclerosis (principal)
CPT/HCPCS: 99214

== ENCOUNTER 2025-05-14 17:57 | Emergency (ER) | payer OTHER, SELFPAY ==
--- NOTE | ~2025-05-14 | XR_ITS ---
CLINICAL HISTORY: index finger deformity, ? dislocation fx Exam: AP view of the right hand with oblique and lateral views of the right index finger. Comparison: None provided. Findings: Dislocation of the PIP joint of the index finger. The middle phalanx is dorsally dislocated in relation to the proximal phalanx of the PIP joint. There is also proximal migration of the middle phalanx. No fractures identified. Soft tissue swelling is evident surrounding the joint as expected. [id number] degenerative change of the 1st metacarpophalangeal joint. Impression: Dislocation of the PIP joint of the index finger. This document has been electronically signed by: Antwan Diaz MD on 05/14/2025 18:52:56
--- NOTE | ~2025-05-14 | XR_ITS ---
CLINICAL HISTORY: post reduction 2nd finger 3 view right second digit Comparison: X-rays of the 2nd digit of the right hand from 05/14/2025 at 6:16 p.m. Findings: Small-punctate avulsion fracture fragments noted of the dorsal aspect of the now reduced proximal interphalangeal joint with now near anatomic alignment of the 2nd digit. Mild osteoarthritis redemonstrated in the imaged hand. Soft tissue swelling including 2nd digit. No retained metallic foreign body. IMPRESSION: Postreduction changes of the 2nd digit. This document has been electronically signed by: Anjum Hess MD on 05/14/2025 20:27:21
[2025-05-14 18:01] VITALS: BP 152/91; PULSE 93; RESP 20; TEMP 37; O2SAT 97; BMI 29.3
--- NOTE | 2025-05-14 18:03 | ED.GENADULT ---
HPI - General Adult General Chief complaint: Extremity Problem Stated complaint: rt hand injury Time Seen by Provider: 05/14/25 19:05 Source: patient, RN notes reviewed and old records reviewed Mode of arrival: ambulatory Limitations: no limitations History of Present Illness ED Provider: Emelina [facility] narrative: Patient is a 64 year old right hand dominant male with pmhx of MS presenting to the ED with complaint of right index finger deformity, swelling and pain. States he fell over a table at work and hit it on concrete. Reporting minimal pain but unable to bend finger. MD complaint: finger injury Related Data Home Medications ?Medication ?Instructions ?Recorded ?Confirmed baclofen 20 mg tablet 20 mg PO BID PRN Pain 11/21/21 04/13/25 Previous Rx's ?Medication ?Instructions ?Recorded sildenafil 25 mg tablet (Viagra) 25 mg PO DAILY PRN sexual activity 12/17/23 30 days #7 tabs albuterol sulfate 90 mcg/actuation 2 puff PO Q6H PRN Pain 30 days 12/22/24 aerosol inhaler #8.5 grams fluticasone 100 mcg-salmeterol 50 1 inh inhalation BID 30 days #60 ea 12/22/24 mcg/dose blistr powdr for inhalation ibuprofen 800 mg tablet 800 mg PO TID PRN pain 30 days #90 12/22/24 tabs Allergies Allergy/AdvReac Type Severity Reaction Status Date / Time seasonal Allergy Intermediate Shortness Uncoded 05/14/25 18:05 of Breath Review of Systems Review of Systems: As per HPI Yes all other systems are reviewed and are negative Constitutional: Constitutional: Reports as per HPI PMFSH Past Medical History Medical History Multiple sclerosis Demyelinating disease Trochanteric bursitis Disorder of SI (sacroiliac) joint DDD (degenerative disc disease) Hx of cardiac murmur Asthma Seasonal allergies Right inguinal hernia Surgical History H/O eye surgery H/O colonoscopy History of dental surgery Social History Social History Housing: House Alcohol intake: current Alcohol intake frequency: a few times a month Patient Tobacco Use Status: Never used Tobacco e-Cigarette/Vaping Use: Never Used Second Hand Smoke Exposure: No Advance Directives: No Advance Directives Information Provided: No Current occupational status: employed Cognitive needs: No Hearing needs: No Vision needs: No Physical Exam ED Vital Signs: Vital Signs - 24 hr 05/14/25 18:01 Temperature 98.6 F Pulse Rate 93 Respiratory Rate 20 Blood Pressure 152/91 H Pulse Oximetry 97 Oxygen Delivery Method Room Air BMI result Body Mass Index 29.3 Vital signs have been reviewed and appear to be correct. Blood pressure normal. Heart rate normal. Respiratory rate normal. Temperature normal. Oxygen saturation normal. Const General: cooperative, healthy appearing and no acute distress Orientation/consciousness: oriented to person, oriented to place, oriented to time and patient oriented x3 Limitations: no limitations HENMT Head: Yes normocephalic and Yes atraumatic Ears: external ears normal General nose exam: Normal external nose present Face and sinus: Yes face symmetric Mouth: oropharynx normal and moist mucous membranes Throat: Yes uvula midline Eyes Pupils: Equal, round and reactive pupils present Neck Neck: Yes normal visual inspection and Yes supple Resp Effort & Inspection: normal respiratory effort and able to speak in complete sentences Auscultation: clear to auscultation bilaterally Cardio Rate: regular rate Rhythm: regular rhythm Heart sounds: S1 normal heart sound present and S2 normal heart sound present Skin General skin exam: elasticity normal and turgor normal Neuro General: oriented to person, oriented to place, oriented to time, patient oriented x3, moves all extremities, no focal motor deficits and CN's II-XI intact bilaterally Cranial nerves: Yes Equal, round and reactive pupils present Cognition (Neuro): normal cognition Extrem General: Yes full ROM, Yes no pedal edema and Yes no calf tenderness Right upper extremity: Extremity exam: right hand Details: normal capillary refill, abnormal ROM of finger Details: unable to flex Location: of the 2nd digit, swelling Location: of the 2nd digit Location: at the PIP joint (+deformity) and ecchymosis Location: of the 2nd digit Location: at the PIP joint and on the palmar aspect Psych Mental Status: mental status grossly normal Affect: normal affect Thought process: Normal thought process present Course Course Course Narrative: This is a rapid medical exam performed by Marybeth Tarango NP: Additional HPI, ROS, PE not included below will be deferred to primary provider. Patient is a 64y/o right hand dominant M with pmhx of MS presenting to the ED with complaint of right index finger deformity, swelling and pain. States he fell over a table at work and hit it on concrete. Plan: x-ray Procedures Orthopedic Joint Reduction Joint #1: Time Out Performed: Yes Side: right Joint Reduction Location: finger Analgesia: none Technique used: traction/counter-traction Post-reduction neuro exam: intact Post-reduction vascular: intact Post Reduction X-Ray Obtained: Yes Splint Applied: Yes Patient Tolerated Procedure: well and no complications Medical Decision Making Medical Decision Making [facility] Narrative: Patient is a 64y/o right hand dominant M with pmhx of MS presenting to the ED with complaint of right index finger deformity, swelling and pain. On exam patient is awake, A+Ox3, VS WNL, afebrile, normal neurological exam without focal deficits, physical exam findings as above. Given reported symptoms and physical exam findings, initial differential includes but is not limited to right index finger fracture versus dislocation. X-ray right index finger notable for dorsal dislocation at PIP joint. My interpretation is in agreement with the radiologist's interpretation. Dislocation reduced as per procedure note. Patient tolerated well, dorsal splint applied. Post reduction x-rays show reduced PIP joint with tiny avulsion fractures. Results discussed with patient, will refer to ortho for follow up. Return precautions discussed at bedside. Patient verbalized understanding of and agreement with plan. Differential Diagnosis Differential Diagnoses: The differential diagnosis associated with the presentation includes as per [facility] Admission/Observation Consideration of admission/observation: Escalation of care including admission/observation considered Patient would have been admitted to the hospital and transferred to appropriate facility had their clinical presentation warranted hospital admission. Independent Interpretation I performed an independent interpretation of an: Plain X-Ray Interpretation: Initial x-ray shows dorsal dislocation at PIP joint of right index finger. Radiology Impression Discussion of test interpretation with radiology: I have reviewed the radiologist's reading. Radiologist Impression: Findings: Dislocation of the PIP joint of the index finger. The middle phalanx is dorsally dislocated in relation to the proximal phalanx of the PIP joint. There is also proximal migration of the middle phalanx. No fractures identified. Soft tissue swelling is evident surrounding the joint as expected. [id number] degenerative change of the 1st metacarpophalangeal joint. Impression: Dislocation of the PIP joint of the index finger. 3 view right second digit Comparison: X-rays of the 2nd digit of the right hand from 05/14/2025 at 6:16 p.m. Findings: Small-punctate avulsion fracture fragments noted of the dorsal aspect of the now reduced proximal interphalangeal joint with now near anatomic alignment of the 2nd digit. Mild osteoarthritis redemonstrated in the imaged hand. Soft tissue swelling including 2nd digit. No retained metallic foreign body. IMPRESSION: Postreduction changes of the 2nd digit. External Record Review External record reviewed: Inpatient record, Office record and Outpatient record Discharge Plan Discharge Clinical Impression: Dislocation of proximal interphalangeal joint of right index finger Qualifiers: Encounter type: initial encounter Qualified Code(s): S63.280A - Dislocation of proximal interphalangeal joint of right index finger, initial encounter Patient Disposition: Home, Self-Care Instructions: Finger Dislocation (ED) Additional Instructions: You were evaluated in the emergency department for an injury to your right index finger. It was noted be dislocated on x-ray and was reduced in the ED and placed in a splint. Your post-reduction x-rays show good reduction of the dislocation. Your finger was placed in a splint which you should wear for 3-5 days. You are being referred to orthopedics for follow up. You can apply ice to the area for 10-15 minutes at a time several times daily, using caution not to apply ice directly to your skin. Return to the emergency department if you develop worsening pain, new numbness/tingling, change of color in your finger, or any other new or concerning symptoms. Prescriptions: No Action baclofen 20 mg tablet 20 mg PO BID PRN (Reason: Pain) sildenafil [Viagra] 25 mg tablet 25 mg PO DAILY PRN (Reason: sexual activity) 30 Days Qty: 7 11RF Rx Instructions: administer 30 minutes to 4 hours before activity albuterol sulfate 90 mcg/actuation HFA aerosol inhaler 2 puff PO Q6H PRN (Reason: Pain) 30 Days Qty: 8.5 3RF fluticasone propion-salmeterol 100-50 mcg/dose blister with device 1 inh inhalation BID 30 Days Qty: 60 3RF ibuprofen 800 mg tablet 800 mg PO TID PRN (Reason: pain) 30 Days Qty: 90 4RF Referrals: Ludmila Stevenson MD [Physician, Hand Surgery] Clinical Impression: Dislocation of proximal interphalangeal joint of right index finger Print Language: Qatari
[2025-05-14 21:17] VITALS: BP 152/91; PULSE 93; RESP 20; TEMP 37; O2SAT 97
== END 2025-05-14 21:17 | disposition home or self-care (01) ==
PROVIDERS: Emergency Provider Student in an Organized Health Care Education/Training Program; PCP Nurse Practitioner Family
DX: S63.280A Dislocation of proximal interphalangeal joint of right index finger, initial encounter (principal); M79.644 Pain in right finger(s); G35.D Multiple sclerosis, unspecified; J45.909 Unspecified asthma, uncomplicated; W01.198A Fall on same level from slipping, tripping and stumbling with subsequent striking against other object, initial encounter; Y92.89 Other specified places as the place of occurrence of the external cause; Y93.89 Activity, other specified; Y99.8 Other external cause status; Z79.899 Other long term (current) drug therapy
CPT/HCPCS: 26700; 73140; 99282; 99283; 99284

== ENCOUNTER → 2025-05-14 18:05 | Outpatient (BNV) | payer OTHER, SELFPAY | PROVIDERS: PCP Nurse Practitioner Family; Visit Provider Radiology Diagnostic Radiology | DX: S62.600D Fracture of unspecified phalanx of right index finger, subsequent encounter for fracture with routine healing (principal); S63.250A Unspecified dislocation of right index finger, initial encounter | CPT/HCPCS: 73140 ==

== ENCOUNTER 2025-05-31 13:02 | Outpatient (REF) | payer OTHER, SELFPAY ==
--- NOTE | ~2025-05-31 | XR_ITS ---
EXAMINATION: XR HAND 3 OR MORE VIEWS RIGHT HISTORY: M79.641 - Pain in right hand COMPARISON: Comparison is made with the prior examination dated 05/14/2025. FINDINGS: Three views of the right index finger are submitted. Osseous mineralization is normal. The previously seen faint osseous densities adjacent to the dorsal aspect of the PIP joint are less well visualized. The joint spaces are preserved. The soft tissues are unremarkable. XR/XR hand RT min 3V IMPRESSION: The previously seen faint osseous densities adjacent to the dorsal aspect of the PIP joint are less well visualized. Electronically signed by: Tommy Adan MD 05/31/2025 01:53 PM EST
== END 2025-05-31 13:03 | disposition home or self-care (01) ==
LOC: HO.HOSX 13:02
PROVIDERS: Visit Provider Orthopaedic Surgery
DX: S63.280D Dislocation of proximal interphalangeal joint of right index finger, subsequent encounter (principal); W23.0XXD Caught, crushed, jammed, or pinched between moving objects, subsequent encounter
CPT/HCPCS: 73130

== ENCOUNTER 2025-05-31 13:26 | Outpatient (AMB) | payer OTHER, SELFPAY ==
--- NOTE | 2025-05-31 13:54 | MHC.OFFVIS ---
Vital Signs 05/31/25 13:58 Height 6 ft Weight 215 lb BMI 29.2 Handedness Right Intake Visit Reasons: ER RT IF dislocation 05/14 reduced same day Intake Note: Aamir is a 64 year old right hand dominant man who presents today for an emergency department follow up for his right index finger injury. Patient reports he was leaving over a Banquet table at work to put in AC however his body pushed the table forward causing him to jam his hand against a brick wall. Expresses it was pretty bad and his finger was reduced at [facility] ED. Says after his finger was reduced his pain resolved. Today he is complaining of stiffness. Desnies numbness, tingling, and locking. 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 Allergies seasonal Allergy (Intermediate, Uncoded 05/31/25 13:57) Shortness of Breath HPI HPI ER RT IF dislocation 05/14 reduced same day: Details: Aamir is a 64 year old right hand dominant man who presents for an ED folow up of his right index finger dislocation, after a fall at work, DOI: 05/14/25. He was reduced in the ED the same day and placed in a splint. He says he is doing well overall. His primarily complaint is of stiffness in his index finger, primarily first thing in the mornings. He says he was instructed to wear a finger splint for ~5 days, and he dislocated his splint when instructed. 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 This injury occurred at work. [facility] Medical History Multiple sclerosis Demyelinating disease Trochanteric bursitis Disorder of SI (sacroiliac) joint DDD (degenerative disc disease) Hx of cardiac murmur Asthma Seasonal allergies Right inguinal hernia Surgical History H/O eye surgery H/O colonoscopy History of dental surgery Social History (Updated 05/31/25 @ 13:58 by SHERIN Dominguez) Housing: House Alcohol intake: current Alcohol intake frequency: a few times a month Patient Tobacco Use Status: Never used Tobacco e-Cigarette/Vaping Use: Never Used Second Hand Smoke Exposure: No Current occupational status: employed and retired Current occupation: right handed Cognitive needs: No Hearing needs: No Vision needs: No Review of Systems Const All systems reviewed & are unremarkable except as noted in HPI and below Physical Exam Vital Signs: BMI result Body Mass Index 29.2 Const General: cooperative, healthy appearing and no acute distress Orientation/consciousness: patient oriented x3 HEENT Head: Yes normocephalic and Yes atraumatic Eyes EOM: EOMs intact bilaterally Resp Effort & Inspection: normal respiratory effort and able to speak in complete sentences Cardio Jugular venous distension: no JVD Skin General skin exam: turgor normal Rashes: no rashes Neuro General: patient oriented x3 Extrem Other: Evaluation of Right Upper Extremity: The patient is alert, oriented, and in no acute distress Neuro: Median, Ulnar, Radial nerves motor and sensory intact and sensation is normal to the tips of all digits Vascular: Cap refill brisk ROM: He can make a fist and extend all his digits Index finger PIP joint is still swollen, but is stable on exam No extensor lag, able to bring closed almost to a fist. Skin: No lacerations or abrasions. General: No Ecchymosis. No Erythema or evidence of infection. Radiographs: 3 views of the right hand were taken and viewed by me today in clinic. They show an index finger PIP joint dorsal dislocation with satisfactory concentric reduction. Minimal dorsal avulsion fracture fragments seen in postreduction view from day of reduction. Psych Appearance: grossly normal Affect: normal affect Attitude: cooperative Assessment & Plan Assessment & Plan (1) Dislocation of proximal interphalangeal joint of right index finger: Code(s): S63.280A - Dislocation of proximal interphalangeal joint of right index finger, initial encounter Category: Medical Qualifiers: Encounter type: initial encounter Qualified Code(s): S63.280A - Dislocation of proximal interphalangeal joint of right index finger, initial encounter Plan Assessment & Plan: 1. Right index finger PIP joint dorsal dislocation, S/P reduction DOI: 05/14/25 Reduced in ED: 05/14/25 I educated him about this condition No operative intervention indicated at this time His index & middle finger were Hong-taped together, to be worn for the next 4 weeks with activities when out of the house, or with heavy or impact activities. This includes at work I discussed activity modification, he is to work on ROM exercises at home. He is to lift nothing heavier than a cellphone for the next 4 weeks. They should also avoid any heavy impact activities, falls, or sports activities for the next 6-8 weeks I explained that it can take up to 12 weeks post injury for full healing This injury occurred from a fall at work, he works at [employer]. I believe the patient said that he has already back at work, part-time He will follow up prn Scribed for Ludmila Stevenson MD by Anjum Garrett, medical billing representative, on 05/31/25 at 2:15 PM, EST. Orders: Orders XR hand RT min 3V Today M79.641 - Pain in right hand Coding Level of Care Code New Pt Level 3 (58940) Diagnoses Dislocation of proximal interphalangeal joint of right index finger S63.280A Encounter type: initial encounter
[2025-05-31 13:58] VITALS: BMI 29.2
== END 2025-05-31 14:48 | disposition home or self-care (01) ==
LOC: HO.HOS 13:27
PROVIDERS: PCP Nurse Practitioner Family; Visit Provider Orthopaedic Surgery
DX: S63.280A Dislocation of proximal interphalangeal joint of right index finger, initial encounter (principal)
CPT/HCPCS: 99203

== ENCOUNTER → 2025-05-31 13:27 | Outpatient (BNV) | payer OTHER, SELFPAY | PROVIDERS: Visit Provider Radiology Diagnostic Radiology | DX: M79.641 Pain in right hand (principal) | CPT/HCPCS: 73130 ==

== ENCOUNTER 2025-06-13 15:47 | Outpatient (AMB) | payer OTHER, SELFPAY ==
[2025-06-13 15:49] VITALS: BMI 29.9
--- NOTE | 2025-06-13 15:49 | A.OFFVIS_ITS ---
Vital Signs 06/13/25 15:49 Height 6 ft Weight 220 lb 7.396 oz BMI 29.9 Intake Visit Reasons: 1 year f/u Intake Note: Aamir presents in the office as a 1 year follow up. CC: states that he had a colo 2 years ago - he states he is not happy with his digestive tract and not sure if this is having to do with his MS. States that the regimen that you suggested seems to be working for him. He takes the Sanokot once a week and it seems to help but he is afraid to travel due to his bowels. [employer] Required: No Allergies seasonal Allergy (Intermediate, Uncoded 05/31/25 13:57) Shortness of Breath HPI Comments Details: 62 y.o with PMH of MS who is here for followup for chronic diarrhea. He reports having loose BMs since 2021 when he was first diagnosed with MS. Now for the past 6 months has been noticing worsening of his symptoms. Reports having abd discomfort and bloating assoc with loose BM after which he feels better. Occurs atleast once a week. Minimal night time sx. No unintentional weight loss. No new meds for the last 6 months. Is on once monthly solumedrol for MS. Does not think diarrhea improves when he takes the Solu-Medrol IV. No family history of colorectal cancer or inflammatory bowel disease in first- degree relatives. 10/07/23: Colonoscopy 1. Normal colon and terminal ileum mucosa (biopsy) 2. Internal hemorrhoids Recommendations: - Follow path results. - Repeat colonoscopy in 10 years for asymptomatic colorectal ca screening. Diagnosis A. Colon, right, biopsy: Colonic mucosa within normal limits. B. Colon, left, biopsy: Melanosis coli; otherwise colonic mucosa within normal limits. Comment: Diagnostic features of microscopic colitis are not identified 10/20/23: Here for post colo follow up. Currently no symptoms. Diarrhea actually got better after doing a colon clean out ? overflow diarrhea. 06/16/24: Doing very well. Reports has similar issue where he will pass small stools x 1-2 weeks and then proceed to have a day of large loose BMs - still suspicious for overflow diarrhea. This occurs may be one-two times a month. Otherwise, MS has been better controlled. 06/13/25: Here for follow up. Reports is trying to work on constipation and overflow incontinence. However this continues to impede in his day to day life. Scared to book any travel because of this. He does mention that he has not been utilizing a daily regimen and has only been taking senna when he develops constipation > 3 days. HE also has not added any fiber supplementation. Otherwise, no abd pain, N,V. No blood in stool. [facility] Medical History Multiple sclerosis Demyelinating disease Trochanteric bursitis Disorder of SI (sacroiliac) joint DDD (degenerative disc disease) Hx of cardiac murmur Asthma Seasonal allergies Right inguinal hernia Surgical History H/O eye surgery H/O colonoscopy History of dental surgery Social History Housing: House Alcohol intake: current Alcohol intake frequency: a few times a month Patient Tobacco Use Status: Never used Tobacco e-Cigarette/Vaping Use: Never Used Second Hand Smoke Exposure: No Current occupational status: employed and retired Current occupation: right handed Cognitive needs: No Hearing needs: No Vision needs: No Review of Systems Const All systems reviewed & are unremarkable except as noted in HPI and below Physical Exam Exam Exam: No apparent distress Nonicteric Abdomen soft, nondistended Alert and oriented x3, Limp in L leg Vital Signs: BMI result Body Mass Index 29.9 Assessment & Plan Assessment & Plan (1) Constipation: Code(s): K59.00 - Constipation, unspecified Category: Medical (2) Overflow incontinence: Code(s): N39.490 - Overflow incontinence Category: Medical (3) Colon cancer screening: Code(s): Z12.11 - Encounter for screening for malignant neoplasm of colon Category: Medical Plan Constipation Overflow incontinence Discussed with the pt that once weekly diarrhea after 4-5 days of constipation appears consistent with overflow diarrhea. Again reinforced to adhere to a regular bowel regimen proactively instead of using laxatives reactively once he is already constipated. Plan: - Encourage good hydration and fiber intake - Daily miralax - Take 2 tabs senna for no BM x 2 days - Simethicone as needed for bloating. #Colorectal ca screening: No polyps noted on colo. Repeat recommended in 2033 Follow up in 4 months Medications: New polyethylene glycol 3350 (Miralax) 17 grams PO DAILY 238 grams 0RF simethicone (Gas-X Extra Strength) 125 mg PO TID PRN 90 tabs 1RF bloating Patient Instructions: - Take miralax once daily. - Take senna 2 tabs once daily if you dont have a BM for 2 days despite the miralax. - Add fiber supplementation. Take 1 tsp fiber mixed in 8 oz of water daily. Can select any fiber available over the counter such as psyllium, metamucil, benefiber etc. - Take simethicone as needed for bloating Coding Level of Care Code Est Pt Level 3 (19807) Diagnoses Constipation K59.00 Overflow incontinence N39.490 Colon cancer screening Z12.11
== END 2025-06-13 16:21 | disposition home or self-care (01) ==
LOC: HO.HGI 15:47
PROVIDERS: PCP Nurse Practitioner Family; Visit Provider Internal Medicine
DX: K59.00 Constipation, unspecified (principal); N39.490 Overflow incontinence
CPT/HCPCS: 99213